=== PATIENT | female | born 1990 | race Caucasian/White ===

== ENCOUNTER 2025-01-25 09:29 | Outpatient (AMB) | payer BC, SELFPAY ==
[2025-01-25 09:34] VITALS: BP 119/69; PULSE 76; RESP 18; TEMP 36.5; O2SAT 98; BMI 22.3
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
== END 2025-01-25 10:27 | disposition home or self-care (01) ==
LOC: HODSOBC 09:29
PROVIDERS: PCP Obstetrics & Gynecology; Referring Provider Obstetrics & Gynecology; Supervising Provider Obstetrics & Gynecology; Visit Provider Obstetrics & Gynecology
DX: O09.511 Supervision of elderly primigravida, first trimester (principal); Z3A.08 8 weeks gestation of pregnancy; O09.891 Supervision of other high risk pregnancies, first trimester; E70.1 Other hyperphenylalaninemias
CPT/HCPCS: 99203; G0463

== ENCOUNTER 2025-03-03 08:26 | Outpatient (AMB) | payer BC, SELFPAY ==
[2025-03-03 08:32] VITALS: BP 103/63; PULSE 86; RESP 17; TEMP 36.5; O2SAT 99; BMI 22.9
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
== END 2025-03-03 08:59 | disposition home or self-care (01) ==
LOC: HODSOBC 08:26
PROVIDERS: Supervising Provider Obstetrics & Gynecology; Visit Provider Obstetrics & Gynecology
DX: O09.512 Supervision of elderly primigravida, second trimester (principal); Z3A.14 14 weeks gestation of pregnancy
CPT/HCPCS: 99213; G0463

== ENCOUNTER 2025-04-03 09:50 | Outpatient (AMB) | payer BC, SELFPAY ==
[2025-04-03 09:55] VITALS: BP 109/69; PULSE 93; RESP 17; TEMP 36.4; O2SAT 99; BMI 24.0
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
== END 2025-04-03 11:00 | disposition home or self-care (01) ==
LOC: HODSOBC 09:50
PROVIDERS: Supervising Provider Obstetrics & Gynecology; Visit Provider Obstetrics & Gynecology
DX: O09.511 Supervision of elderly primigravida, first trimester (principal); O09.892 Supervision of other high risk pregnancies, second trimester; O99.282 Endocrine, nutritional and metabolic diseases complicating pregnancy, second trimester; E70.1 Other hyperphenylalaninemias; Z3A.18 18 weeks gestation of pregnancy
CPT/HCPCS: 99214; G0463

== ENCOUNTER 2025-04-28 12:57 | Outpatient (AMB) | payer BC, SELFPAY ==
[2025-04-28 13:19] VITALS: BP 107/65; PULSE 93; RESP 17; TEMP 36.5; O2SAT 98; BMI 25.5
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
== END 2025-04-28 15:07 | disposition home or self-care (01) ==
LOC: HODSOBC 12:57
PROVIDERS: Supervising Provider Obstetrics & Gynecology; Visit Provider Obstetrics & Gynecology
DX: O09.512 Supervision of elderly primigravida, second trimester (principal); O09.892 Supervision of other high risk pregnancies, second trimester; O99.282 Endocrine, nutritional and metabolic diseases complicating pregnancy, second trimester; E70.1 Other hyperphenylalaninemias; Z3A.22 22 weeks gestation of pregnancy
CPT/HCPCS: 99213; G0463

== ENCOUNTER 2025-06-07 11:19 | Outpatient (AMB) | payer BC, SELFPAY ==
[2025-06-07 11:27] VITALS: BP 116/69; PULSE 91; RESP 18; TEMP 36.2; O2SAT 98; BMI 28.5
--- NOTE | 2025-06-07 11:27 | AMB.OBVISIT ---
Vital Signs 06/07/25 11:27 Height 1.55 m Height Method Stated Weight 68.663 kg Weight Measurement Method Standing Scale BMI 28.5 BP 116/69 Blood Pressure Source Automatic Cuff Blood Pressure Location Left Upper Arm Position Sitting Respiration 18 Pulse 91 Pulse Source Monitor Temp 97.2 F Temp Source Oral Pulse Oximetry (%) 98 Oxygen Delivery Method Room Air Allergies/Home Meds Allergies & Medications Allergies No Known Allergies Allergy (Verified 06/07/25 11:28) Medication Reconciliation vits no.126-ferrous fum 28 mg iron-folic acid 800 mcg tablet (Classic ) tab PO 01/25/25 [History Confirmed 06/07/25] Intake Visit Data Collection New Patient or Established: Established Patient (seen at [facility] within 3 years) Reason for Visit:: OBC Seen by Clinical Staff ONLY (RN/MA): No Environmental Services Specialist Required: No Do You Feel Safe at Home: Yes Authorities Contacted: N/A PCP or OBGYN visit in last 3 months: Yes Date of Last PCP or OBGYN visit: 04/28/25 Hx Now: Yes Are you currently on any form of Control: No Pain Present Currently: No Pain Scale Used: [place]/Numerical Pain scale:: 0 Smoking Status Smoking Status: Never smoker Questionnaires Covid-19 Vaccine Questionnaire Has patient been vacinated for Covid-19 Have you been vacinated for Covid-19: Yes PHQ-9 PHQ-2 Over the last 2 weeks, how often have you been bothered by any of the following problems? 1. Little interest or pleasure in doing things: not at all 2. Feeling down, depressed, or hopeless: not at all Total score: 0 PHQ-9 3. Trouble falling or staying asleep, or sleeping too much: Not at all 4. Feeling tired or having little energy: Not at all 5. Poor appetite or overeating: Not at all 6. Feeling bad about yourself - or that you are a failure or have let yourself or your family down: Not at all 7. Trouble concentrating on things, such as reading the newspaper or watching television: Not at all 8. Moving or speaking so slowly that other people could have noticed? - Or the opposite - being so fidgety or restless that you have been moving around a lot more than usual: not at all 9. Thoughts that you would be better off or of hurting yourself in some way: Not at all Total score: 0 If you checked off any problems, how difficult have these problems made it for you to do your work, take care of things at home, or get along with other people?: not difficult at all Source: Developed by Drs. Chaka Aguero, Ila Brothers, Rishi Andrew and colleagues, with an educational terri from [employer]. Depression screen completed yes Social History Living Situation History Marital Status: Lives With: Family Housing: House Housing Other:: Pt's boyfriend is present today. He has another child. 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 Seeing [facility] to follow PKU 04/03/25 <del>?</del> 18w 4d 57.833 kg 109/69 18 135 active Patient is starting to feel movement. No bleeding or contractions. Has an appointment with [facility] later this week to have her structural survey performed. 04/28/25 <del>?</del> 22w 1d 61.462 kg 107/65 22 143 active Patient reports good movement no contractions no loss of fluids or vaginal bleeding. 06/07/25 <del>?</del> 27w 6d 68.663 kg 116/69 30 127 active Good movement no contractions no loss of fluids Patient is concerned because she has gained about 35 pounds so far. VAHID Calculator Estimated Delivery Date Method Current WG Current Estimate 08/31/25 LMP (Certain) 27w 6d Other Estimates 12/27/25 Ultrasound #1 27w 4d Expected Delivery Route/Plan Anticipate . Specific Issue/Plans Pt has PKU: Follows special diet and gets weekly lab work. Follows at [facility]. Co-manage with [facility] AMA: Level II U/S and NIPT Labs 01/28/24 [facility] on chart: A+/Ab-/Rubella Nonimmune/RPR NR/HIV-/HepBSag-/HepC-/Urine cx-/GC-/Chlam-/Hgb 12.4 NIPT pending Notes Visit Date: 06/07/25 Last Updated by: Mary Ellen Tenorio (OB Clinic)MD 1 hour glucose was ordered. Patient states this is fine to take with PKU and she ran up by her physicians. She is following up with [facility] next week for an ultrasound for size. She was given information for . Reassurance given about weight gain. Baby is measuring big today by Ciaran around 31 weeks. Visit Date: 04/28/25 Last Updated by: Mary Ellen Tenorio (OB Clinic)MD Is doing well. Discussed breast-feeding. She states her left nipple is inverted. She is interested in breast-feeding. She is interested in going natural but also getting an epidural. She will write down her breast preferences. 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 She is getting her weekly blood drawn by her and sending it into [facility] to check for PKU status. We will order a glucose challenge test next time she states this is not a problem with her PKU. Visit Date: 03/03/25 Last Updated by: Mary Ellen Tenorio (OB Clinic)MD Pt has had NT/early US with [facility] and is followed at [facility] for her PKU. Ok to co-manage with [facility] and deliver here at [facility] unless pt becomes complicated. Office Procedures OBC Clinic LOC & Office Proc's Nursing/Assessment Patient Status: Established Patient OB Clinic Nursing Assessment: Medication Reconciliation, Update PMH in EMR and Vital Signs OB Clinic Coordination of Care: Education Complex Pt/Fam, Consent,records obtained, informed consent, Lab and Imaging orders, Results/Orders obtained and Staff clarify orders Special Needs: Heart tones Established Patient Charge Established Patient Point Assignment: 115 Established Patient Point Charge: EP Level 3 (80-115) Assessment & Plan Diagnosis / Problem List (1) AMA (advanced maternal age) primigravida 35+: Status: Acute Qualifiers: Trimester: second trimester Qualified Code(s): O09.512 - Supervision of elderly primigravida, second trimester Plan: Normal NIPT on level 2 ultrasound (2) : Status: Acute Qualifiers: Weeks of gestation: 28 weeks Qualified Code(s): Z3A.28 - 28 weeks gestation of (3) PKU (phenylketonuria): Status: Acute
== END 2025-06-07 11:47 | disposition home or self-care (01) ==
LOC: HODSOBC 11:19
PROVIDERS: Supervising Provider Obstetrics & Gynecology; Visit Provider Obstetrics & Gynecology
DX: O09.522 Supervision of elderly multigravida, second trimester (principal); O99.282 Endocrine, nutritional and metabolic diseases complicating pregnancy, second trimester; E70.1 Other hyperphenylalaninemias; O09.892 Supervision of other high risk pregnancies, second trimester; Z3A.27 27 weeks gestation of pregnancy
CPT/HCPCS: 99213; G0463

== ENCOUNTER 2025-06-30 10:18 | Outpatient (AMB) | payer BC, SELFPAY ==
[2025-06-30 10:42] VITALS: BP 117/68; PULSE 96; RESP 18; TEMP 36.2; O2SAT 97; BMI 29.7
--- NOTE | 2025-06-30 10:42 | OBCLNT_ITS ---
Vital Signs 06/30/25 10:42 Height 1.55 m Height Method Stated Weight 71.384 kg Weight Measurement Method Standing Scale BMI 29.7 BP 117/68 Blood Pressure Source Automatic Cuff Blood Pressure Location Left Upper Arm Position Sitting Respiration 18 Pulse 96 Pulse Source Monitor Temp 97.2 F Temp Source Oral Pulse Oximetry (%) 97 Oxygen Delivery Method Room Air Allergies/Home Meds Allergies & Medications Allergies No Known Allergies Allergy (Verified 06/30/25 10:43) Medication Reconciliation vits no.126-ferrous fum 28 mg iron-folic acid 800 mcg tablet (Classic ) tab PO 01/25/25 [History Confirmed 06/30/25] Intake Visit Data Collection New Patient or Established: Established Patient (seen at [facility] within 3 years) Reason for Visit:: OBC Seen by Clinical Staff ONLY (RN/MA): No Mandarin Teacher Required: No Do You Feel Safe at Home: Yes Authorities Contacted: N/A PCP or OBGYN visit in last 3 months: Yes Date of Last PCP or OBGYN visit: 06/07/25 Hx Now: Yes Are you currently on any form of Control: No Pain Present Currently: No Pain Scale Used: [place]/Numerical Pain scale:: 0 Smoking Status Smoking Status: Never smoker Immunizations Flu Vaccine in the Last 12 Months: No Flu Vaccine Exclusion Criteria: No Exclusion Criteria Questionnaires Covid-19 Vaccine Questionnaire Has patient been vacinated for Covid-19 Have you been vacinated for Covid-19: No PHQ-9 PHQ-2 Over the last 2 weeks, how often have you been bothered by any of the following problems? 1. Little interest or pleasure in doing things: not at all 2. Feeling down, depressed, or hopeless: not at all Total score: 0 PHQ-9 3. Trouble falling or staying asleep, or sleeping too much: Not at all 4. Feeling tired or having little energy: Not at all 5. Poor appetite or overeating: Not at all 6. Feeling bad about yourself - or that you are a failure or have let yourself or your family down: Not at all 7. Trouble concentrating on things, such as reading the newspaper or watching television: Not at all 8. Moving or speaking so slowly that other people could have noticed? - Or the opposite - being so fidgety or restless that you have been moving around a lot more than usual: not at all 9. Thoughts that you would be better off or of hurting yourself in some way: Not at all Total score: 0 If you checked off any problems, how difficult have these problems made it for you to do your work, take care of things at home, or get along with other people?: not difficult at all Source: Developed by Drs. Chaka Aguero, Ila Brothers, Rishi Andrew and colleagues, with an educational terri from [employer]. Depression screen completed yes Social History Living Situation History Lives With: Family Housing: House Housing Other:: Pt's boyfriend is present today. He has another child. 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 [facility] to follow [facility]U 04/03/25 -?-?-?-?-?-?-?-?-?-?-?-?- 18w 4d 57.833 kg 109/69 18 135 active Patient is starting to feel movement. No bleeding or contractions. Has an appointment with [facility] later this week to have her structural survey performed. 04/28/25 -?-?-?-?-?-?-?-?-?-?-?-?- 22w 1d 61.462 kg 107/65 22 143 active Patient reports good movement no contractions no loss of fluids or vaginal bleeding. 06/07/25 -?-?-?-?-?-?-?-?-?-?-?-?- 27w 6d 68.663 kg 116/69 30 127 active Good movement no contractions no loss of fluids Patient is con cerned because she has gained about 35 pounds so far. 06/30/25 -?-?-?-?-?-?-?-?-?-?-?-?- 31w 1d 71.384 kg 117/68 absent cephalic 32 145 active - Alanis Bentley is a 34-year-old female at 31 weeks and 1 day gestation with an estimated due date of August 31, with a past medical history of PKU, here for routine care. - She has active PKU and follows a low-p rotein diet, avoiding certain medications, dyes, coloring agents, flavoring agents, and aspartame. - She performs weekly home tests to nettie tor protein levels, which have been normal. - She is followed by [facility] for her high-ri sk . - She inquired about caffeine intake dur ing . - She asked about epidurals and their association with C-sections. - Continue taking vitamins - Next appointment in 2 weeks - Weekly visits after 35 weeks - Continue weekly home tests to monitor protein levels - Maintain low-protein diet and avoid ce rtain medications, dyes, coloring agents, flavoring agents, and aspartame due to PKU - Continue MFM follow-up VAHID Calculator Estimated Delivery Date Method Current WG Current Estimate 08/31/25 LMP (Certain) 31w 4d Other Estimates 09/02/25 Ultrasound #1 31w 2d Expected Delivery Route/Plan Anticipate . Specific Issue/Plans Pt has PKU: Follows special diet and gets weekly lab work. Follows at [facility]. Co-manage with [facility] AMA: Level II U/S and NIPT Labs 01/28/24 [facility] on chart: A+/Ab-/Rubella Nonimmune/RPR NR/HIV-/HepBSag-/HepC-/Urine cx-/GC-/Chlam-/Hgb 12.4 NIPT pending Notes Visit Date: 06/07/25 Last Updated by: Mary Ellen Tenorio (OB Clinic)MD 1 hour glucose was ordered. Patient states this is fine to take with PKU and she ran up by her physicians. She is following up with [facility] next week for an ultrasound for size. She was given information for . Reassurance given about weight gain. Baby is measuring big today by Ciaran around 31 weeks. Visit Date: 04/28/25 Last Updated by: Mary Ellen Tenroio (OB Clinic)MD Is doing well. Discussed breast-feeding. She states her left nipple is inverted. She is interested in breast-feeding. She is interested in going natural but also getting an epidural. She will write down her breast preferences. 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 She is getting her weekly [facility] by [facility] We will order a glucose challenge test next time she states this is not a problem with her PKU. Visit Date: 03/03/25 Last Updated by: Mary Ellen Tenorio (OB Clinic)MD Pt has had NT/early US with [facility] and [facility]. Ok to co-manage with [facility] and deliver here at [facility] unless pt becomes complicated. Office Procedures OBC Clinic LOC & Office Proc's Nursing/Assessment Patient Status: Established Patient OB Clinic Nursing Assessment: Medication Reconciliation, Update PMH in EMR and Vital Signs OB Clinic Coordination of Care: Consent,records obtained, informed consent, Education Simp Pt/Fam, Lab and Imaging orders, Results/Orders obtained and Staff clarify orders Special Needs: Heart tones Established Patient Charge Established Patient Point Assignment: 110 Established Patient Point Charge: EP Level 3 (80-115) Assessment & Plan Diagnosis / Problem List (1) PKU (phenylketonuria): Status: Acute (2) AMA (advanced maternal age) primigravida 35+: Status: Acute Qualifiers: Trimester: second trimester Qualified Code(s): O09.512 - Supervision of elderly primigravida, second trimester (3) 31 weeks gestation of : Status: Acute Plan Problem List - Phenylketonuria - at 31 weeks 1 day gestation Assessment 30-year-old patient at 31 weeks 1 day gestation with estimated due date of August 31, complicated by phenylketonuria (PKU) requiring dietary management and maternal- medicine follow-up. Recent growth assessment on 06-15-2025 demonstrates appropriate growth at 80th percentile with estimated weight of 3 pounds 2 ounces and normal anatomy. Laboratory results from 06-17-2025 show hemoglobin of 11.4 g/dL and one-hour glucose screening of 119 mg/dL. Patient maintains good PKU control with weekly home protein level monitoring showing normal results while adhering to low-protein diet restrictions. Previous MFM scan on 05-05-2025 at 23 weeks showed fetus at 50th percentile weighing 568 grams with normal anatomy survey and cervical length of 4.23 cm. Plan - Continue taking vitamins - Next appointment in 2 weeks - Weekly visits after 35 weeks - Continue weekly home tests to monitor protein levels - Maintain low-protein diet and avoid certain medications, dyes, coloring agents, flavoring agents, and aspartame due to PKU - Continue MFM follow-up 1. Progress Reviewed gestational age (31 weeks 1 day), growth (3 pounds 2 ounces, 80th percentile), and heart rate. Planned frequent visits (every 2 weeks until 35 weeks, then weekly). 2. Instructed patient to monitor movements and report decreases immediately. 3. Testing Counseled on routine third-trimester labs per guidelines. Discussed potential need for ultrasound or monitoring based on risk factors. 4. Preeclampsia Precaution Educated on preeclampsia signs: severe headache, vision changes, right upper quadrant pain, sudden swelling. Advised urgent reporting of symptoms and discussed blood pressure monitoring if high risk. 5. Labor Precautions Reviewed labor signs: regular contractions, pelvic pressure, back pain, bleeding, or fluid leakage. Instructed to seek immediate care for these symptoms. 6. Lifestyle and Delivery Preparation Reinforced vitamins, nutrition, and safe activity. Discussed plan, pain management (including epidural education), and . Advised on labor preparation (e.g., hospital bag) and expectations. 7. Psychosocial Support Assessed emotional well-being and offered resources for mental health or parent ing support.
== END 2025-06-30 11:08 | disposition home or self-care (01) ==
PROVIDERS: Supervising Provider Obstetrics & Gynecology; Visit Provider Obstetrics & Gynecology
DX: O09.523 Supervision of elderly multigravida, third trimester (principal); O09.893 Supervision of other high risk pregnancies, third trimester; O99.283 Endocrine, nutritional and metabolic diseases complicating pregnancy, third trimester; E70.1 Other hyperphenylalaninemias; Z3A.31 31 weeks gestation of pregnancy
CPT/HCPCS: 99213; G0463

== ENCOUNTER 2025-07-12 08:28 | Outpatient (AMB) | payer BC, SELFPAY ==
--- NOTE | 2025-07-12 08:47 | AMB.OBVISIT ---
Vital Signs 07/12/25 08:48 Height 1.55 m Height Method Stated Weight 73.595 kg Weight Measurement Method Standing Scale BMI 30.6 BP 116/72 Blood Pressure Source Automatic Cuff Blood Pressure Location Left Upper Arm Position Standing Respiration 18 Pulse 110 H Pulse Source Monitor Temp 97.6 F Temp Source Oral Pulse Oximetry (%) 98 Oxygen Delivery Method Room Air Allergies/Home Meds Allergies & Medications Allergies No Known Allergies Allergy (Verified 07/12/25 08:49) Medication Reconciliation vits no.126-ferrous fum 28 mg iron-folic acid 800 mcg tablet (Classic ) tab PO 01/25/25 [History Confirmed 07/12/25] Intake Visit Data Collection New Patient or Established: Established Patient (seen at [facility] within 3 years) Reason for Visit:: OBC Seen by Clinical Staff ONLY (RN/MA): No Sports Team Manager Required: No Do You Feel Safe at Home: Yes Authorities Contacted: N/A PCP or OBGYN visit in last 3 months: Yes Date of Last PCP or OBGYN visit: 06/30/25 ( .) Smoking Status Smoking Status: Never smoker Immunizations Flu Vaccine in the Last 12 Months: No Flu Vaccine Exclusion Criteria: No Exclusion Criteria Questionnaires Covid-19 Vaccine Questionnaire Has patient been vacinated for Covid-19 Have you been vacinated for Covid-19: Yes PHQ-9 PHQ-2 Over the last 2 weeks, how often have you been bothered by any of the following problems? 1. Little interest or pleasure in doing things: not at all 2. Feeling down, depressed, or hopeless: not at all Total score: 0 PHQ-9 3. Trouble falling or staying asleep, or sleeping too much: Not at all 4. Feeling tired or having little energy: Not at all 5. Poor appetite or overeating: Not at all 6. Feeling bad about yourself - or that you are a failure or have let yourself or your family down: Not at all 7. Trouble concentrating on things, such as reading the newspaper or watching television: Not at all 8. Moving or speaking so slowly that other people could have noticed? - Or the opposite - being so fidgety or restless that you have been moving around a lot more than usual: not at all 9. Thoughts that you would be better off or of hurting yourself in some way: Not at all Total score: 0 If you checked off any problems, how difficult have these problems made it for you to do your work, take care of things at home, or get along with other people?: not difficult at all Source: Developed by Drs. Chaka Aguero, Ila Brothers, Rishi Andrew and colleagues, with an educational terri from [employer]. Depression screen completed yes Social History Living Situation History Marital Status: Single Lives With: Family Housing: House Housing Other:: Pt's boyfriend is present today. He has another child. 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 Seeing [facility] to follow PKU 04/03/25 <del>?</del> 18w 4d 57.833 kg 109/69 18 135 active Patient is starting to feel movement. No bleeding or contractions. Has an appointment with [facility] later this week to have her structural survey performed. 04/28/25 <del>?</del> 22w 1d 61.462 kg 107/65 22 143 active Patient reports good movement no contractions no loss of fluids or vaginal bleeding. 06/07/25 <del>?</del> 27w 6d 68.663 kg 116/69 30 127 active Good movement no contractions no loss of fluids Patient is concerned because she has gained about 35 pounds so far. 06/30/25 <del>?</del> 31w 1d 71.384 kg 117/68 absent cephalic 32 145 active - Alanis Bentley is a 34-year-old female at 31 weeks and 1 day gestation with an estimated due date of August 31, with a past medical history of PKU, here for routine care. - She has active PKU and follows a low-protein diet, avoiding certain medications, dyes, coloring agents, flavoring agents, and aspartame. - She performs weekly home tests to monitor protein levels, which have been normal. - She is followed by [facility] for her high-risk . - She inquired about caffeine intake during . - She asked about epidurals and their association with C-sections. - Continue taking vitamins - Next appointment in 2 weeks - Weekly visits after 35 weeks - Continue weekly home tests to monitor protein levels - Maintain low-protein diet and avoid certain medications, dyes, coloring agents, flavoring agents, and aspartame due to PKU - Continue MFM follow-up VAHID Calculator Estimated Delivery Date Method Current WG Current Estimate 08/31/25 LMP (Certain) 32w 6d Other Estimates 09/02/25 Ultrasound #1 32w 4d Expected Delivery Route/Plan Anticipate . Specific Issue/Plans Pt has PKU: Follows special diet and gets weekly lab work. Follows at [facility]. Co-manage with Ms AMA: Level II U/S and NIPT Labs 01/28/24 [facility] on chart: A+/Ab-/Rubella Nonimmune/RPR NR/HIV-/HepBSag-/HepC-/Urine cx-/GC-/Chlam-/Hgb 12.4 NIPT pending Notes Visit Date: 06/07/25 Last Updated by: Mary Ellen Tenorio (OB Clinic)MD 1 hour glucose was ordered. Patient states this is fine to take with PKU and she ran up by her physicians. She is following up with [facility] next week for an ultrasound for size. She was given information for . Reassurance given about weight gain. Baby is measuring big today by Ciaran around 31 weeks. Visit Date: 04/28/25 Last Updated by: Mary Ellen Tenorio (OB Clinic)MD Is doing well. Discussed breast-feeding. She states her left nipple is inverted. She is interested in breast-feeding. She is interested in going natural but also getting an epidural. She will write down her breast preferences. 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 She is getting her weekly blood drawn by [facility]. We will order a glucose challenge test next time she states this is not a problem with her PKU. Visit Date: 03/03/25 Last Updated by: Mary Ellen Tenorio (OB Clinic)MD Pt has had NT/early US with [facility]. Ok to co-manage with [facility] and deliver here at [facility] unless pt becomes complicated. Office Procedures OBC Clinic LOC & Office Proc's Nursing/Assessment Patient Status: Established Patient OB Clinic Nursing Assessment: Medication Reconciliation, Update PMH in EMR and Vital Signs OB Clinic Coordination of Care: Consent,records obtained, informed consent, Education Simp Pt/Fam, Lab and Imaging orders, Results/Orders obtained and Staff clarify orders Special Needs: Heart tones Established Patient Charge Established Patient Point Assignment: 110 Established Patient Point Charge: EP Level 3 (80-115) Assessment & Plan Diagnosis / Problem List (1) AMA (advanced maternal age) primigravida 35+: Status: Acute Qualifiers: Trimester: second trimester Qualified Code(s): O09.512 - Supervision of elderly primigravida, second trimester (2) PKU (phenylketonuria): Status: Acute (3) 33 weeks gestation of : Status: Acute Plan Problem List - Phenylketonuria - at 32 weeks 6 days Assessment 32 weeks 6 days gestation in a 1 para 0 patient with phenylketonuria. Patient reports active movement with no contractions. heart rate is 146 bpm, which is within normal limits. Patient continues to work and remains active. Plan - Obtain influenza, RSV, and Tdap vaccines at pharmacy ([facility] or [email or web address]) - Follow up in 2 weeks - After next visit, appointments will become weekly 1. Progress Reviewed gestational age (32 weeks 6 days), growth, and heart rate (146 bpm - normal). Planned frequent visits (every 2 weeks until 36 weeks, then weekly). 2. Instructed patient to monitor movements and report decreases immediately. 3. Testing Counseled on routine third-trimester labs per guidelines. Discussed potential need for ultrasound or monitoring based on risk factors. 4. Preeclampsia Precaution Educated on preeclampsia signs: severe headache, vision changes, right upper quadrant pain, sudden swelling. Advised urgent reporting of symptoms and discussed blood pressure monitoring if high risk. 5. Labor Precautions Reviewed labor signs: regular contractions, pelvic pressure, back pain, bleeding, or fluid leakage. Instructed to seek immediate care for these symptoms. 6. Lifestyle and Delivery Preparation Reinforced vitamins, nutrition, and safe activity. Encouraged continued work and activity to maintain muscle tone and strength for delivery. Discussed plan, pain management, and . Advised on labor preparation (e.g., hospital bag) and expectations. 7. Psychosocial Support Assessed emotional well-being and offered resources for mental health or parenting support.
[2025-07-12 08:48] VITALS: BP 116/72; PULSE 110; RESP 18; TEMP 36.4; O2SAT 98; BMI 30.6
== END 2025-07-12 09:31 | disposition home or self-care (01) ==
LOC: HODSOBC 08:28
PROVIDERS: Supervising Provider Obstetrics & Gynecology; Visit Provider Obstetrics & Gynecology
DX: O09.513 Supervision of elderly primigravida, third trimester (principal); O09.893 Supervision of other high risk pregnancies, third trimester; O99.283 Endocrine, nutritional and metabolic diseases complicating pregnancy, third trimester; E70.1 Other hyperphenylalaninemias; Z3A.33 33 weeks gestation of pregnancy
CPT/HCPCS: 99213; G0463

== ENCOUNTER 2025-07-28 10:18 | Outpatient (AMB) | payer BC, SELFPAY ==
[2025-07-28 10:28] VITALS: BP 122/71; PULSE 99; RESP 18; TEMP 36.6; O2SAT 97; BMI 31.4
--- NOTE | 2025-07-28 10:28 | OBCLNT_ITS ---
Vital Signs 07/28/25 10:28 Height 1.55 m Height Method Stated Weight 75.466 kg Weight Measurement Method Standing Scale BMI 31.4 BP 122/71 Blood Pressure Source Automatic Cuff Blood Pressure Location Right Upper Arm Position Sitting Respiration 18 Pulse 99 Pulse Source Monitor Temp 97.8 F Temp Source Temporal Artery Scan Pulse Oximetry (%) 97 Oxygen Delivery Method Room Air Allergies/Home Meds Allergies & Medications Allergies No Known Allergies Allergy (Verified 08/28/25 08:47) Medication Reconciliation vits no.126-ferrous fum 28 mg iron-folic acid 800 mcg tablet (Classic ) 1 tab PO QDAY 01/25/25 [History Confirmed 08/25/25] Immunizations Immunizations Flu Vaccine in the Last 12 Months: No Flu Vaccine Exclusion Criteria: Refused by Patient Care OB Visit Log OB Flowsheet Initial Weight: Not Recorded Date -?-?-?-?-?-?-?-?-?-?-?-?- EGA Weight BP Alb Glu CTX Pres Fundal ht FHR Mov Dilation Station Effacement Hx Notes Visit Note 03/03/25 -?-?-?-?-?-?-?-?-?-?-?-?- 14w 1d 55.055 kg 103/63 14 154 No VB or Cramping. Seeing [facility] to follow PKU 04/03/25 -?-?-?-?-?-?-?-?-?-?-?-?- 18w 4d 57.833 kg 109/69 18 135 active Patient is starting to feel movement. No bleeding or contractions. Has an appointment with [facility] later this week to have her structural survey performed. 04/28/25 -?-?-?-?-?-?-?-?-?-?-?-?- 22w 1d 61.462 kg 107/65 22 143 active Patient reports good movement no contractions no loss of fluids or vaginal bleeding. 06/07/25 -?-?-?-?-?-?-?-?-?-?-?-?- 27w 6d 68.663 kg 116/69 30 127 active Good movement no contractions no loss of fluids Patient is con cerned because she has gained about 35 pounds so far. 06/30/25 -?-?-?-?-?-?-?-?-?-?-?-?- 31w 1d 71.384 kg 117/68 absent cephalic 32 145 active - Alanis Bentley is a 34-year-old female at 31 weeks and 1 day gestation with an estimated due date of August 31, with a past medical history of PKU, here for routine care. - She has active PKU and follows a low-p rotein diet, avoiding certain medications, dyes, coloring agents, flavoring agents, and aspartame. - She performs weekly home tests to nettie tor protein levels, which have been normal. - She is followed by [facility] for her high-ri sk . - She inquired about caffeine intake dur ing . - She asked about epidurals and their association with C-sections. - Continue taking vitamins - Next appointment in 2 weeks - Weekly visits after 35 weeks - Continue weekly home tests to monitor protein levels - Maintain low-protein diet and avoid ce rtain medications, dyes, coloring agents, flavoring agents, and aspartame due to PKU - Continue [facility] follow-up 07/12/25 -?-?-?-?-?-?-?-?-?-?-?-?- 32w 6d 73.595 kg 116/72 absent cephalic 33 146 active - She reports the baby is active with no contractions. - She continues to work and remains phys ically active. - She inquires about RSV vaccination cy ing as she will be 33 weeks tomorrow. - She reports baby becomes active at [facility], particularly after eating dinner late. - Obtain influen za, RSV, and Tdap vaccines at pharmacy ([employer] or [facility]) - Follow up in 2 weeks - After next visit, appointments will be come weekly 07/28/25 -?-?-?-?-?-?-?-?-?-?-?-?- 35w 1d 75.466 kg 122/71 absent cephalic 35 162 active - She reports the baby is always active and notes she is getting bigger. - She experiences shortness of breath al l the time. - She had consumed sugar prior to the vi sit. - She inquired about obtaining an electr ic breast pump through insurance referral. - She asked about rooming-in policies wi th the baby after delivery. - She expressed concerns about delivery location given she lives in [place] with the nearest hospital being [facility], but prefers to deliver at the current facility. - Follow up in one week - Group B Strep culture due at next visi t - Electric breast pump referral to be pr ocessed by [facility] - Patient counseled on labor and deliver y protocols including rooming-in options, [id number] contact, delayed cord clamping, and hospital selection based on labor status 08/18/25 -?--?-?-?-?-?-?-?-?-?-?-?- 38w 1d 77.224 kg 111/74 absent cephalic 39 145 active - She reports no contractions currently, though had more [place] contractions over the last 2 weeks which have now decreased. - This morning she experienced what felt like urinary leakage that went down her leg. - Did not notice any particular smell - Has not had any ongoing leakage sinc e the single episode a couple hours prior to visit - Reports baseline increased vaginal d ischarge that predates - She denies any gush of fluid or contin uous leaking. - Patient desires natural and is a pproaching her due date in approximately 2 weeks. - Administer pen icillin in labor due to positive GBS culture - Check cervix at 39 weeks - Perform membrane sweeping at 39 weeks visit to promote labor - Schedule ultrasound at next visit for weight measurement - If leaking episode recurs, come to [facility] for rupture of membranes test (amnisure test) 08/25/25 -?-?-?-?-?-?-?-?-?-?-?-?- 39w 1d 77.281 kg 130/70 absent cephalic 40 139 active No contractions, LOF, VB and reports good FM. Denies BRADSHAW, VC, and epigastric pain. - Induction of labor scheduled for ThursdaySeptember 04 at 40 weeks 4 days gestation - Patient to call labor and delivery uni t at [phone] (direct number) at 7:30 AM on September 04 for admission time and room assignment - Induction process will include cervica l ripening phase if cervix <3 cm dilated using misoprostol tablets or dinoprostone vaginal insert, followed by artificial rupture of membranes and oxytocin administration - Complete ultrasound today to assess fe mina weight, amniotic fluid index, placenta, and well-being - Non-stress test (NST) for 20 minutes w ith heart rate monitoring - Patient advised to increase fluid inta ke when experiencing hiccups - No further office appointments schedul ed prior to induction VAHID Calculator Estimated Delivery Date Method Current WG Current Estimate 08/31/25 LMP (Certain) 40w 0d Other Estimates 09/02/25 Ultrasound #1 39w 5d Expected Delivery Route/Plan Anticipate . Specific Issue/Plans Pt has PKU: Follows special diet and gets weekly lab work. Follows at [facility]. Co-manage with [facility] AMA: Level II U/S and NIPT Labs 01/28/24 [facility] on chart: A+/Ab-/Rubella Nonimmune/RPR NR/HIV-/HepBSag-/HepC-/Urine cx-/GC-/Chlam-/Hgb 12.4 NIPT pending Notes Visit Date: 06/07/25 Last Updated by: Mary Ellen Tenorio (OB Clinic)MD 1 hour glucose was ordered. Patient states this is fine to take with PKU and she ran up by her physicians. She is following up with [facility] next week for an ultrasound for size. She was given information for . Reassurance given about weight gain. Baby is measuring big today by Ciaran around 31 weeks. Visit Date: 04/28/25 Last Updated by: Mary Ellen Tenorio (OB Clinic)MD Is doing well. Discussed breast-feeding. She states her left nipple is inverted. She is interested in breast-feeding. She is interested in going natural but also getting an epidural. She will write down her breast preferences. 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 She is getting her weekly blood drawn by her and [facility] to check for PKU status. We will order a glucose challenge test next time she states this is not a problem with her PKU. Visit Date: 03/03/25 Last Updated by: Mary Ellen Tenorio (OB Clinic)MD Pt has had NT/early US with [facility] and is followed at [facility] for her PKU. Ok to co-manage with [facility] and deliver here at [facility] unless pt becomes complicated. Office Procedures OBC Clinic LOC & Office Proc's Nursing/Assessment Patient Status: Established Patient OB Clinic Nursing Assessment: Medication Reconciliation, Update PMH in EMR and Vital Signs OB Clinic Coordination of Care: Complex Care and Chronic Disease 1-5, Education Complex Pt/Fam, Consent,records obtained, informed consent, Lab and Imaging orders, Results/Orders obtained and Staff clarify orders Special Needs: Heart tones Established Patient Charge Established Patient Point Assignment: 140 Established Patient Point Charge: EP Level 4 (120-155) Assessment & Plan Diagnosis / Problem List (1) Supervision of high risk , unspecified, third trimester: Status: Acute (2) PKU (phenylketonuria): Status: Acute (3) AMA (advanced maternal age) primigravida 35+: Status: Acute Qualifiers: Trimester: second trimester Qualified Code(s): O09.512 - Supervision of elderly primigravida, second trimester Plan Assessment 34-year-old patient at approximately 35 weeks gestation with estimated due date of August 31, presenting for routine visit. heart rate is 162 bpm, which is within normal limits. Patient reports increased activity and experiencing shortness of breath, consistent with advancing . Patient consumed sugar prior to visit which may account for elevated heart rate. Patient is beyond the 34-week gestational age threshold for delivery at this facility. Plan - Follow up in one week - Group B Strep culture due at next visit - Electric breast pump referral to be processed by [facility] - Patient counseled on labor and delivery protocols including rooming-in options, [id number] contact, delayed cord clamping, and hospital selection based on labor status 1. Progress Reviewed gestational age at 35 weeks with due date August 31, growth appropriate, and heart rate 162 bpm which is normal. Patient reports increased activity and shortness of breath. Planned frequent visits (every 2 weeks until 36 weeks, then weekly). 2. Instructed patient to monitor movements and report decreases immediately. 3. Testing Counseled on routine third-trimester labs per guidelines including Group B Strep culture scheduled for next visit. Discussed potential need for ultrasound or monitoring based on risk factors. 4. Preeclampsia Precaution Educated on preeclampsia signs: severe headache, vision changes, right upper quadrant pain, sudden swelling. Advised urgent reporting of symptoms and discussed blood pressure monitoring if high risk. 5. Labor Precautions Reviewed labor signs: regular contractions, pelvic pressure, back pain, bleeding, or fluid leakage. Instructed to seek immediate care for these symptoms. Discussed that if in active labor where patient cannot speak through contractions, or if bleeding or decreased movement occurs, to go to nearest hospital. If water breaks without active contractions, patient can travel to preferred hospital. 6. Lifestyle and Delivery Preparation Reinforced vitamins, nutrition, and safe activity. Discussed plan including rooming-in options, [id number] contact immediately after delivery, delayed cord clamping, and procedures. Discussed pain management and support including electric breast pump referral to [facility]. Advised on labor preparation and expectations including nursery vs rooming-in options based on delivery circumstances. 7. Psychosocial Support Assessed emotional well-being and offered resources for mental health or parenting support.
== END 2025-07-28 10:51 | disposition home or self-care (01) ==
LOC: HODSOBC 10:18
PROVIDERS: Supervising Provider Obstetrics & Gynecology; Visit Provider Obstetrics & Gynecology
DX: O09.893 Supervision of other high risk pregnancies, third trimester (principal); O99.283 Endocrine, nutritional and metabolic diseases complicating pregnancy, third trimester; O09.513 Supervision of elderly primigravida, third trimester; E70.1 Other hyperphenylalaninemias; Z3A.35 35 weeks gestation of pregnancy; Z28.21 Immunization not carried out because of patient refusal
CPT/HCPCS: 99214; G0463

== ENCOUNTER 2025-08-08 09:01 | Outpatient (AMB) | payer BC, SELFPAY ==
--- NOTE | 2025-08-08 09:23 | OBCLNT_ITS ---
Vital Signs 08/08/25 09:24 Height 1.55 m Height Method Stated Weight 76.26 kg Weight Measurement Method Standing Scale BMI 31.7 BP 118/73 Blood Pressure Source Automatic Cuff Blood Pressure Location Left Upper Arm Position Sitting Respiration 18 Pulse 112 H Pulse Source Monitor Temp 98.2 F Temp Source Oral Pulse Oximetry (%) 98 Oxygen Delivery Method Room Air Allergies/Home Meds Allergies & Medications Allergies phenylalanine Allergy (Severe, Verified 09/01/25 22:20) Confusion soy Allergy (Severe, Verified 09/01/25 21:48) Confusion meats Allergy (Severe, Uncoded 09/01/25 21:48) Confusion proteins Allergy (Severe, Uncoded 09/01/25 21:48) Confusion tofu Allergy (Severe, Uncoded 09/01/25 21:48) Confusion Immunizations Immunizations Flu Vaccine in the Last 12 Months: No Flu Vaccine Exclusion Criteria: No Exclusion Criteria Care OB Visit Log OB Flowsheet Initial Weight: Not Recorded Date -?-?-?-?-?-?-?-?-?-?-?-?- EGA Weight BP Alb Glu CTX Pres Fundal ht FHR Mov Dilation Station Effacement Hx Notes Visit Note 03/03/25 -?-?-?-?-?-?-?-?-?-?-?-?- 14w 1d 55.055 kg 103/63 14 154 No VB or Cramping. Seeing [facility] to follow PKU 04/03/25 -?-?-?-?-?-?-?-?-?-?-?-?- 18w 4d 57.833 kg 109/69 18 135 active Patient is starting to feel movement. No bleeding or contractions. Has an appointment with [facility] later this week to have her structural survey performed. 04/28/25 -?-?-?-?-?-?-?-?-?-?-?-?- 22w 1d 61.462 kg 107/65 22 143 active Patient reports good movement no contractions no loss of fluids or vaginal bleeding. 06/07/25 -?-?-?-?-?-?-?-?-?-?-?-?- 27w 6d 68.663 kg 116/69 30 127 active Good movement no contractions no loss of fluids Patient is con cerned because she has gained about 35 pounds so far. 06/30/25 -?-?-?-?-?-?-?-?-?-?-?-?- 31w 1d 71.384 kg 117/68 absent cephalic 32 145 active - Alanis Bentley is a 34-year-old female at 31 weeks and 1 day gestation with an estimated due date of August 31, with a past medical history of PKU, here for routine care. - She has active PKU and follows a low-p rotein diet, avoiding certain medications, dyes, coloring agents, flavoring agents, and aspartame. - She performs weekly home tests to nettie tor protein levels, which have been normal. - She is followed by [facility] for her high-ri sk . - She inquired about caffeine intake dur ing . - She asked about epidurals and their association with C-sections. - Continue taking vitamins - Next appointment in 2 weeks - Weekly visits after 35 weeks - Continue weekly home tests to monitor protein levels - Maintain low-protein diet and avoid ce rtain medications, dyes, coloring agents, flavoring agents, and aspartame due to PKU - Continue MFM follow-up 07/12/25 -?-?-?-?-?-?-?-?-?-?-?-?- 32w 6d 73.595 kg 116/72 absent cephalic 33 146 active - She reports the baby is active with no contractions. - She continues to work and remains phys ically active. - She inquires about RSV vaccination cy ing as she will be 33 weeks tomorrow. - She reports baby becomes active at [facility], particularly after eating dinner late. - Obtain influen za, RSV, and Tdap vaccines at pharmacy ([employer] or [employer]) - Follow up in 2 weeks - After next visit, appointments will be come weekly 07/28/25 -?-?-?-?-?-?-?-?-?-?-?-?- 35w 1d 75.466 kg 122/71 absent cephalic 35 162 active - She reports the baby is always active and notes she is getting bigger. - She experiences shortness of breath al l the time. - She had consumed sugar prior to the vi sit. - She inquired about obtaining an electr ic breast pump through insurance referral. - She asked about rooming-in policies wi th the baby after delivery. - She expressed concerns about delivery location given she lives in [place] with the nearest hospital being [facility], but prefers to deliver at the current facility. - Follow up in one week - Group B Strep culture due at next visi t - Electric breast pump referral to be pr ocessed by Talia - Patient counseled on labor and deliver y protocols including rooming-in options, [id number] contact, delayed cord clamping, and hospital selection based on labor status 08/08/25 -?-?-?-?-?-?-?-?-?-?-?-?- 36w 5d 76.26 kg 118/73 absent cephalic 37 145 active - She reports some mild discomfort last night after attending a parade, describing it as coming and going. - This occurred after 34 weeks gestati on, which the clinician noted can happen at this stage. - She denies having contractions. 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 - She is still working and plans to cont inue as long as she can. - She had an ultrasound at [facility] on July 18 s howing: - Overall size at 78th percentil e - Abdominal circumference at 94th perc entile - She was referred there due to being high risk - The maternal medicine team ind icated follow-up was at the discretion of her primary systems technician - GB S culture collected (rectovaginal swab) - Continue routine care - Follow up in one week - Ultrasound at time of admission for zambrano to estimate weight 08/18/25 -?-?-?-?-?-?-?-?-?-?-?-?- 38w 1d 77.224 kg 111/74 absent cephalic 39 145 active - She reports no contractions currently, though had more Roque Salinas contractions over the last 2 weeks which have now decreased. - This morning she experienced what felt like urinary leakage that went down her leg. - Did not notice any particular smell - Has not had any ongoing leakage sinc e the single episode a couple hours prior to visit - Reports baseline increased vaginal d ischarge that predates - She denies any gush of fluid or contin uous leaking. - Patient desires natural and is a pproaching her due date in approximately 2 weeks. - Administer pen icillin in labor due to positive GBS culture - Check cervix at 39 weeks - Perform membrane sweeping at 39 weeks visit to promote labor - Schedule ultrasound at next visit for weight measurement - If leaking episode recurs[facility] (am[facility] test) 08/25/25 -?-?-?-?-?-?-?-?-?-?-?-?- 39w 1d 77.281 kg 130/70 absent cephalic 40 139 active No contractions, LOF, VB and reports good FM. Denies BRADSHAW, VC, and epigastric pain. - Induction of labor scheduled for ThursdaySeptember 04 at 40 weeks 4 days gestation - Patient to call labor and delivery uni t at [phone] (direct number) at 7:30 AM on September 04 for admission time and room assignment - Induction process will include cervica l ripening phase if cervix <3 cm dilated using misoprostol tablets or dinoprostone vaginal insert, followed by artificial rupture of membranes and oxytocin administration - Complete ultrasound today to assess fe mina weight, amniotic fluid index, placenta, and well-being - Non-stress test (NST) for 20 minutes w ith heart rate monitoring - Patient advised to increase fluid inta ke when experiencing hiccups - No further office appointments schedul ed prior to induction VAHID Calculator Estimated Delivery Date Method Current WG Current Estimate 08/31/25 LMP (Certain) 40w 4d Other Estimates 09/02/25 Ultrasound #1 40w 2d Expected Delivery Route/Plan Anticipate . Specific Issue/Plans Pt has PKU: Follows special diet and gets weekly lab work. Follows at [facility]. Co-manage with [facility] AMA: Level II U/S and NIPT Labs 01/28/24 [facility] on chart: A+/Ab-/Rubella Nonimmune/RPR NR/HIV-/HepBSag-/HepC-/Urine cx-/GC-/Chlam-/Hgb 12.4 NIPT pending Notes Visit Date: 08/08/25 Last Updated by: Ramez Horn MD Laboratory, Imaging, and Diagnostic Test Results - Date: 07/18/2025 - Maternal Medicine ultrasound: Estimated weight 2546 grams (78th percentile), abdominal circumference 94th percentile, head circumference 63, biparietal diameter 74, femur length 30, amniotic fluid index 16.5, cephalic presentation Visit Date: 06/07/25 Last Updated by: Mary Ellen Tenorio (OB Clinic)MD 1 hour glucose was ordered. Patient states this is fine to take with PKU and she ran up by her physicians. She is following up with [facility] next week for an ultrasound for size. She was given information for . Reassurance given about weight gain. Baby is measuring big today by Ciaran around 31 weeks. Visit Date: 04/28/25 Last Updated by: Mary Ellen Tenorio (OB Clinic)MD Is doing well. Discussed breast-feeding. She states her left nipple is inverted. She is interested in breast-feeding. She is interested in going preeti ural but also getting an epidural. She will write down her breast preferences. 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 She is getting her weekly blood drawn by her and sending it into [facility] to check for PKU status. We will order a glucose challenge test next time she states this is not a problem with her PKU. Visit Date: 03/03/25 Last Updated by: Mary Ellen Tenorio (OB Clinic)MD Pt has had NT/early US with [facility] and is followed at [facility] for her PKU. Ok to co-manage with [facility] and deliver here at [facility] unless pt becomes complicated. Office Procedures OBC Clinic LOC & Office Proc's Nursing/Assessment Patient Status: Established Patient OB Clinic Nursing Assessment: Medication Reconciliation, Update PMH in EMR and Vital Signs OB Clinic Coordination of Care: Consent,records obtained, informed consent, Education Simp Pt/Fam, Lab and Imaging orders, Results/Orders obtained and Staff clarify orders Special Needs: Heart tones Miscellaneous Interventions: Pelvic Comp w/OB cult Established Patient Charge Established Patient Point Assignment: 125 Established Patient Point Charge: EP Level 4 (120-155) Assessment & Plan Diagnosis / Problem List (1) Supervision of high risk , unspecified, third trimester: Status: Acute (2) PKU (phenylketonuria): Status: Acute Plan Assessment Patient is a woman who underwent Group B Streptococcus (GBS) screening via rectovaginal culture swab. Recent ultrasound from July 18, 2025 at [facility] medicine showed estimated weight of 2546 grams at 78th percentile with abdominal circumference at 94th percentile. Additional measurements included head circumference 63, biparietal diameter 74, and femur length 30, with amniotic fluid index of 16.5 and cephalic presentation. Patient reports mild discomfort following recent activity but denies contractions. heart rate monitoring performed with normal findings at 145 bpm. Plan - GBS culture collected (rectovaginal swab) - Continue routine care - Follow up in one week - Ultrasound at time of admission for delivery to estimate weight 1. Progress Reviewed gestational age, growth, and heart rate. Planned frequent visits (every 2 weeks until 36 weeks, then weekly). 2. Instructed patient to monitor movements and report decreases immediately. 3. Testing Counseled on routine third-trimester labs per guidelines. Discussed potential need for ultrasound or monitoring based on risk factors. 4. Preeclampsia Precaution Educated on preeclampsia signs: severe headache, vision changes, right upper quadrant pain, sudden swelling. Advised urgent reporting of symptoms and discussed blood pressure monitoring if high risk. 5. Labor Precautions Reviewed labor signs: regular contractions, pelvic pressure, back pain, bleeding, or fluid leakage. Instructed to seek immediate care for these symptoms. 6. Lifestyle and Delivery Preparation Reinforced vitamins, nutrition, and safe activity. Discussed plan, pain management, and . Advised on labor preparation (e.g., hospital bag) and expectations. 7. Psychosocial Support Assessed emotional well-being and offered resources for mental health or parenting support.
[2025-08-08 09:24] VITALS: BP 118/73; PULSE 112; RESP 18; TEMP 36.8; O2SAT 98; BMI 31.7
== END 2025-08-08 10:27 | disposition home or self-care (01) ==
LOC: HODSOBC 09:01
PROVIDERS: Supervising Provider Obstetrics & Gynecology; Visit Provider Obstetrics & Gynecology
DX: O09.893 Supervision of other high risk pregnancies, third trimester (principal); O99.283 Endocrine, nutritional and metabolic diseases complicating pregnancy, third trimester; O09.513 Supervision of elderly primigravida, third trimester; E70.1 Other hyperphenylalaninemias; Z36.85 Encounter for antenatal screening for Streptococcus B; Z3A.36 36 weeks gestation of pregnancy
CPT/HCPCS: 99214; G0463

== ENCOUNTER 2025-08-18 10:03 | Outpatient (AMB) | payer BC, SELFPAY ==
[2025-08-18 10:10] VITALS: BP 111/74; PULSE 98; RESP 18; TEMP 36.1; O2SAT 97; BMI 32.1
--- NOTE | 2025-08-18 10:10 | AMB.OBPNC ---
Vital Signs 08/18/25 10:10 Height 1.55 m Height Method Stated Weight 77.224 kg Weight Measurement Method Standing Scale BMI 32.1 BP 111/74 Blood Pressure Source Automatic Cuff Blood Pressure Location Right Upper Arm Position Sitting Respiration 18 Pulse 98 Pulse Source Monitor Temp 97.0 F Temp Source Temporal Artery Scan Pulse Oximetry (%) 97 Oxygen Delivery Method Room Air Allergies/Home Meds Allergies & Medications Allergies No Known Allergies Allergy (Verified 08/18/25 10:11) Medication Reconciliation vits no.126-ferrous fum 28 mg iron-folic acid 800 mcg tablet (Classic ) tab PO 01/25/25 [History Confirmed 08/18/25] Immunizations Immunizations Flu Vaccine in the Last 12 Months: No Flu Vaccine Exclusion Criteria: No Exclusion Criteria Care OB Visit Log OB Flowsheet Initial Weight: Not Recorded Date <del>?</del> EGA Weight BP Alb Glu CTX Pres Fundal ht FHR Mov Dilation Station Effacement Hx Notes Visit Note 03/03/25 <del>?</del> 14w 1d 55.055 kg 103/63 14 154 No VB or Cramping. Seeing [facility] to follow PKU 04/03/25 <del>?</del> 18w 4d 57.833 kg 109/69 18 135 active Patient is starting to feel movement. No bleeding or contractions. Has an appointment with [facility] later this week to have her structural survey performed. 04/28/25 <del>?</del> 22w 1d 61.462 kg 107/65 22 143 active Patient reports good movement no contractions no loss of fluids or vaginal bleeding. 06/07/25 <del>?</del> 27w 6d 68.663 kg 116/69 30 127 active Good movement no contractions no loss of fluids Patient is concerned because she has gained about 35 pounds so far. 06/30/25 <del>?</del> 31w 1d 71.384 kg 117/68 absent cephalic 32 145 active - Alanis Bentely is a 34-year-old female at 31 weeks and 1 day gestation with an estimated due date of August 31, with a past medical history of PKU, here for routine care. - She has active PKU and follows a low-protein diet, avoiding certain medications, dyes, coloring agents, flavoring agents, and aspartame. - She performs weekly home tests to monitor protein levels, which have been normal. - She is followed by [facility] for her high-risk . - She inquired about caffeine intake during . - She asked about epidurals and their association with C-sections. - Continue taking vitamins - Next appointment in 2 weeks - Weekly visits after 35 weeks - Continue weekly home tests to monitor protein levels - Maintain low-protein diet and avoid certain medications, dyes, coloring agents, flavoring agents, and aspartame due to PKU - Continue MFM follow-up 07/12/25 <del>?</del> 32w 6d 73.595 kg 116/72 absent cephalic 33 146 active - She reports the baby is active with no contractions. - She continues to work and remains physically active. - She inquires about RSV vaccination timing as she will be 33 weeks tomorrow. - She reports baby becomes active at night, particularly after eating dinner late. - Obtain influenza, RSV, and Tdap vaccines at pharmacy ([employer] or [employer]) - Follow up in 2 weeks - After next visit, appointments will become weekly 08/18/25 <del>?</del> 38w 1d 77.224 kg 111/74 absent cephalic 39 145 active - She reports no contractions currently, though had more Roque Salinas contractions over the last 2 weeks which have now decreased. - This morning she experienced what felt like urinary leakage that went down her leg. - Did not notice any particular smell - Has not had any ongoing leakage since the single episode a couple hours prior to visit - Reports baseline increased vaginal discharge that predates - She denies any gush of fluid or continuous leaking. - Patient desires natural and is approaching her due date in approximately 2 weeks. - Administer penicillin in labor due to positive GBS culture - Check cervix at 39 weeks - Perform membrane sweeping at 39 weeks visit to promote labor - Schedule ultrasound at next visit for weight measurement - If leaking episode recurs, come to hospital for rupture of membranes test (amnisure test) VAHID Calculator Estimated Delivery Date Method Current WG Current Estimate 08/31/25 LMP (Certain) 38w 1d Other Estimates 09/02/25 Ultrasound #1 37w 6d Expected Delivery Route/Plan Anticipate . Specific Issue/Plans Pt has PKU: Follows special diet and gets weekly lab work. Follows at [facility]. Co-manage with [facility] AMA: Level II U/S and NIPT Labs 01/28/24 [facility] on chart: A+/Ab-/Rubella Nonimmune/RPR NR/HIV-/HepBSag-/HepC-/Urine cx-/GC-/Chlam-/Hgb 12.4 NIPT pending Notes Visit Date: 06/07/25 Last Updated by: Mary Ellen Tenorio (OB Clinic)MD 1 hour glucose was ordered. Patient states this is fine to take with PKU and she ran up by her physicians. She is following up with [facility] next week for an ultrasound for size. She was given information for . Reassurance given about weight gain. Baby is measuring big today by Ciaran around 31 weeks. Visit Date: 04/28/25 Last Updated by: Mary Ellen Tenorio (OB Clinic)MD Is doing well. Discussed breast-feeding. She states her left nipple is inverted. She is interested in breast-feeding. She is interested in going natural but also getting an epidural. She will write down her breast preferences. 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 She is getting her weekly blood drawn by her and sending it into [facility] to check for PKU status. We will order a glucose challenge test next time she states this is not a problem with her PKU. Visit Date: 03/03/25 Last Updated by: Mary Ellen Tenorio (OB Clinic)MD Pt has had NT/early US with [facility] and is followed at [facility] for her PKU. Ok to co-manage with [facility] and deliver here at [facility] unless pt becomes complicated. Office Procedures OBC Clinic LOC & Office Proc's Nursing/Assessment Patient Status: Established Patient OB Clinic Nursing Assessment: Medication Reconciliation, Update PMH in EMR and Vital Signs OB Clinic Coordination of Care: Complex Care and Chronic Disease 1-5, Education Complex Pt/Fam, Consent,records obtained, informed consent, Lab and Imaging orders, Results/Orders obtained and Staff clarify orders Special Needs: Heart tones Established Patient Charge Established Patient Point Assignment: 140 Established Patient Point Charge: EP Level 4 (120-155) Assessment & Plan Diagnosis / Problem List (1) PKU (phenylketonuria): Status: Acute (2) AMA (advanced maternal age) primigravida 35+: Status: Acute Qualifiers: Trimester: second trimester Qualified Code(s): O09.512 - Supervision of elderly primigravida, second trimester (3) Supervision of high risk , unspecified, third trimester: Status: Acute Plan Problem List - Group B Streptococcus colonization in - at 38 weeks 1 day gestation Assessment 38-week and 1-day patient with positive Group B Streptococcus (GBS) culture requiring penicillin during labor. Patient experienced a single episode of fluid leakage down her leg this morning without ongoing leakage, odor, or change from baseline vaginal discharge. heart rate is 145 beats per minute, which is normal. Patient reports decreased Roque Salinas contractions over the past week compared to the previous two weeks, consistent with descent and uterine positioning changes. Patient desires natural and has had an uncomplicated course to date. Plan - Administer penicillin in labor due to positive GBS culture - Check cervix at 39 weeks - Perform membrane sweeping at 39 weeks visit to promote labor - Schedule ultrasound at next visit for weight measurement - If leaking episode recurs, come to hospital for rupture of membranes test (amnisure test) 1. Progress Reviewed gestational age at 38 weeks and 1 day, growth, and heart rate at 145 bpm (normal). Planned frequent visits with next visit at 39 weeks for cervical check and membrane sweeping. 2. Instructed patient to monitor movements and report decreases immediately. 3. Testing Counseled on routine third-trimester labs per guidelines. Discussed ultrasound planned for next visit at 39 weeks for weight measurement. 4. Preeclampsia Precaution Educated on preeclampsia signs: severe headache, vision changes, right upper quadrant pain, sudden swelling. Advised urgent reporting of symptoms and discussed blood pressure monitoring if high risk. 5. Labor Precautions Reviewed labor signs: regular contractions, pelvic pressure, back pain, bleeding, or fluid leakage. Instructed to seek immediate care for these symptoms. Patient reported possible fluid leakage this morning but was reassured it was likely urinary incontinence from pressure on bladder. Advised to return if similar leaking occurs again for rupture of membranes testing. 6. Lifestyle and Delivery Preparation Reinforced vitamins, nutrition, and safe activity. Discussed plan (patient desires natural ), pain management options including epidural safety, and . Advised on labor preparation and expectations. Discussed membrane sweeping procedure for next visit to promote natural labor onset. 7. Psychosocial Support Assessed emotional well-being regarding first-time anxiety and provided reassurance about natural capabilities.
== END 2025-08-18 10:33 | disposition home or self-care (01) ==
LOC: HODSOBC 10:03
PROVIDERS: Supervising Provider Obstetrics & Gynecology; Visit Provider Obstetrics & Gynecology
DX: O09.513 Supervision of elderly primigravida, third trimester (principal); O09.893 Supervision of other high risk pregnancies, third trimester; O99.283 Endocrine, nutritional and metabolic diseases complicating pregnancy, third trimester; E70.1 Other hyperphenylalaninemias; O99.820 Streptococcus B carrier state complicating pregnancy; O47.1 False labor at or after 37 completed weeks of gestation; Z3A.38 38 weeks gestation of pregnancy
CPT/HCPCS: 99214; G0463

== ENCOUNTER 2025-08-25 10:31 | Outpatient (AMB) | payer BC, SELFPAY ==
[2025-08-25 10:40] VITALS: BP 130/70; PULSE 101; RESP 18; TEMP 36.2; O2SAT 98; BMI 32.1
--- NOTE | 2025-08-25 10:40 | OBCLNT_ITS ---
Vital Signs 08/25/25 10:40 Height 1.55 m Height Method Stated Weight 77.281 kg Weight Measurement Method Standing Scale BMI 32.1 BP 130/70 Blood Pressure Source Automatic Cuff Blood Pressure Location Right Upper Arm Position Sitting Respiration 18 Pulse 101 H Pulse Source Monitor Temp 97.1 F Temp Source Temporal Artery Scan Pulse Oximetry (%) 98 Oxygen Delivery Method Room Air Allergies/Home Meds Allergies & Medications Allergies No Known Allergies Allergy (Verified 08/25/25 11:43) Medication Reconciliation vits no.126-ferrous fum 28 mg iron-folic acid 800 mcg tablet (Classic ) 1 tab PO QDAY 01/25/25 [History Confirmed 08/25/25] Immunizations Immunizations Flu Vaccine in the Last 12 Months: No Flu Vaccine Exclusion Criteria: No Exclusion Criteria Care OB Visit Log OB Flowsheet Initial Weight: Not Recorded Date -?-?-?-?-?-?-?-?-?-?-?-?- EGA Weight BP Alb Glu CTX Pres Fundal ht FHR Mov Dilation Station Effacement Hx Notes Visit Note 03/03/25 -?-?-?-?-?-?-?-?-?-?-?-?- 14w 1d 55.055 kg 103/63 14 154 No VB or Cramping. Seeing Anjel Gray to follow PKU 04/03/25 -?-?-?-?-?-?-?-?-?-?-?-?- 18w 4d 57.833 kg 109/69 18 135 active Patient is starting to feel movement. No bleeding or contractions. Has an appointment with Anjel martinez's later this week to have her structural survey performed. 04/28/25 -?-?-?-?-?-?-?-?-?-?-?-?- 22w 1d 61.462 kg 107/65 22 143 active Patient reports good movement no contractions no loss of fluids or vaginal bleeding. 06/07/25 -?-?-?-?-?-?-?-?-?-?-?-?- 27w 6d 68.663 kg 116/69 30 127 active Good movement no contractions no loss of fluids Patient is con cerned because she has gained about 35 pounds so far. 06/30/25 -?-?-?-?-?-?-?-?-?-?-?-?- 31w 1d 71.384 kg 117/68 absent cephalic 32 145 active - Alanis Bentley is a 34-year-old female at 31 weeks and 1 day gestation with an estimated due date of August 31, with a past medical history of PKU, here for routine care. - She has active PKU and follows a low-p rotein diet, avoiding certain medications, dyes, coloring agents, flavoring agents, and aspartame. - She performs weekly home tests to nettie tor protein levels, which have been normal. - She is followed by [facility] for her high-ri sk . - She inquired about caffeine intake dur ing . - She asked about epidurals and their association with C-sections. - Continue taking vitamins - Next appointment in 2 weeks - Weekly visits after 35 weeks - Continue weekly home tests to monitor protein levels - Maintain low-protein diet and avoid ce rtain medications, dyes, coloring agents, flavoring agents, and aspartame due to PKU - Continue M follow-up 07/12/25 -?-?-?-?-?-?-?-?-?-?-?-?- 32w 6d 73.595 kg 116/72 absent cephalic 33 146 active - She reports the baby is active with no contractions. - She continues to work and remains phys ically active. - She inquires about RSV vaccination cy ing as she will be 33 weeks tomorrow. - She reports baby becomes active at [facility], particularly after eating dinner late. - Obtain influen za, RSV, and Tdap vaccines at pharmacy ([facility] or [facility]) - Follow up in 2 weeks - After next visit, appointments will be come weekly 08/18/25 -?-?-?-?-?-?-?-?-?-?-?-?- 38w 1d 77.224 kg 111/74 absent cephalic 39 145 active - She reports no cont ractions currently, though had more Roque Salinas contractions over the last 2 weeks which have now decreased. - This morning she experienced what felt like urinary leakage that went down her leg. - Did not notice any particular smell - Has not had any ongoing leakage sinc e the single episode a couple hours prior to visit - Reports baseline increased vaginal d ischarge that predates - She denies any gush of fluid or contin uous leaking. - Patient desires natural and is a pproaching her due date in approximately 2 weeks. - Administer pen icillin in labor due to positive GBS culture - Check cervix at 39 weeks - Perform membrane sweeping at 39 weeks visit to promote labor - Schedule ultrasound at next visit for weight measurement - If leaking episode recurs, come to [facility] for rupture of membranes test (amnisure test) 08/25/25 -?-?-?-?-?-?-?-?-?-?-?-?- 39w 1d 77.281 kg 130/70 absent cephalic 40 139 active No contractions, LOF, VB and reports good FM. Denies BRADSHAW, VC, and epigastric pain. - Induction of labor scheduled for ThursdaySeptember 04 at 40 weeks 4 days gestation - Patient to call labor and delivery uni t at [phone] (direct number) at 7:30 AM on September 04 for admission time and room assignment - Induction process will include cervica l ripening phase if cervix <3 cm dilated using misoprostol tablets or dinoprostone vaginal insert, followed by artificial rupture of membranes and oxytocin administration - Complete ultrasound today to assess fe mina weight, amniotic fluid index, placenta, and well-being - Non-stress test (NST) for 20 minutes w ith heart rate monitoring - Patient advised to increase fluid inta ke when experiencing hiccups - No further office appointments sched ed prior to induction VAHID Calculator Estimated Delivery Date Method Current WG Current Estimate 08/31/25 LMP (Certain) 39w 1d Other Estimates 09/02/25 Ultrasound #1 38w 6d Expected Delivery Route/Plan Anticipate . Specific Issue/Plans Pt has PKU: Follows special diet and gets weekly lab work. Follows at [facility]. Co-manage with [facility] AMA: Level II U/S and NIPT Labs 01/28/24 [facility] on chart: A+/Ab-/Rubella Nonimmune/RPR NR/HIV-/HepBSag-/HepC-/Urine cx-/GC-/Chlam-/Hgb 12.4 NIPT pending Notes Visit Date: 06/07/25 Last Updated by: Mary Ellen Tenorio (OB Clinic)MD 1 hour glucose was ordered. Patient states this is fine to take with PKU and she ran up by her physicians. She is following up with [facility] next week for an ultrasound for size. She was given information for . Reassurance given about weight gain. Baby is measuring big today by Ciaran around 31 weeks. Visit Date: 04/28/25 Last Updated by: Mary Ellen Tenorio (OB Clinic)MD Is doing well. Discussed breast-feeding. She states her left nipple is inverted. She is interested in breast-feeding. She is interested in going natural but also getting an epidural. She will write down her breast preferences. 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 She is getting her weekly blood drawn by her and sending it into children to check for PKU status. We will order a glucose challenge test next time she states this is not a problem with her PKU. Visit Date: 03/03/25 Last Updated by: Mary Ellen Tenorio (OB Clinic)MD Pt has had NT/early US with [facility] and is followed at [facility] for her PKU. Ok to co-manage with [facility] and deliver here at [facility] unless pt becomes complicated. Office Procedures OBC Clinic LOC & Office Proc's Nursing/Assessment Patient Status: Established Patient OB Clinic Nursing Assessment: Medication Reconciliation, Update PMH in EMR and Vital Signs OB Clinic Coordination of Care: Complex Care and Chronic Disease 1-5, Education Complex Pt/Fam, Consent,records obtained, informed consent, Lab and Imaging orders, Results/Orders obtained and Staff clarify orders Special Needs: Heart tones Established Patient Charge Established Patient Point Assignment: 140 Established Patient Point Charge: EP Level 4 (120-155) Assessment & Plan Diagnosis / Problem List (1) Supervision of high risk , unspecified, third trimester: Status: Acute (2) PKU (phenylketonuria): Status: Acute Plan Problem List - Post-term - macrosomia Assessment 40-week patient at term with macrosomia (94th percentile) who has not spontaneously entered labor. Patient is experiencing hiccups described as brief vibratory movements lasting less than 5 seconds. heart rate is normal at 139 bpm. Patient is scheduled for labor induction at 40 weeks and 4 days to prevent complications associated with post-term and large size, including shoulder dystocia, oligohydramnios, and heart rate abnormalities. Plan - Induction of labor scheduled for ThursdaySeptember 04 at 40 weeks 4 days gestation - Patient to call labor and delivery unit at [phone] (direct number) at 7:30 AM on September 04 for admission time and room assignment - Induction process will include cervical ripening phase if cervix <3 cm dilated using misoprostol tablets or dinoprostone vaginal insert, followed by artificial rupture of membranes and oxytocin administration - Complete ultrasound today to assess weight, amniotic fluid index, placenta, and well-being - Non-stress test (NST) for 20 minutes with heart rate monitoring - Patient advised to increase fluid intake when experiencing hiccups - No further office appointments scheduled prior to induction 1. Progress Reviewed gestational age (40 weeks, due ), growth (baby measuring at 94th percentile), and heart rate (139 bpm, normal). Planned induction on September 04 due to large size to avoid going beyond 41 weeks. 2. Instructed patient to monitor movements and report decreases immediately. 3. Testing Counseled on complete ultrasound today including weight estimation, amniotic fluid index (YOLANDA), placenta, and ovaries assessment. Discussed ultrasound and non-stress test (NST) for 20 minutes at hospital today. 4. Preeclampsia Precaution Educated on preeclampsia signs: severe headache, vision changes, right upper quadrant pain, sudden swelling. Advised urgent reporting of symptoms and discussed blood pressure monitoring if high risk. 5. Labor Precautions Reviewed signs to report immediately including spontaneous labor onset. Instructed to seek immediate care and come to hospital if labor begins naturally before scheduled induction. 6. Lifestyle and Delivery Preparation Discussed detailed induction process including cervical ripening phase with misoprostol or dinoprostone if cervix <3cm, followed by membrane rupture and oxytocin administration. Advised on hospital admission process for September 04 - call [phone] (direct unit number) at 7:30 AM for room assignment and timing. Explained average induction duration of 48 hours and hospital stay until delivery. 7. Psychosocial Support Addressed patient concerns about movements (explained baby hiccups and recommended increased hydration). Provided reassurance about safety of induction process and medical necessity due to size.
== END 2025-08-25 11:08 | disposition home or self-care (01) ==
LOC: HODSOBC 10:31
PROVIDERS: Supervising Provider Obstetrics & Gynecology; Visit Provider Obstetrics & Gynecology
DX: O09.893 Supervision of other high risk pregnancies, third trimester (principal); O99.283 Endocrine, nutritional and metabolic diseases complicating pregnancy, third trimester; E70.1 Other hyperphenylalaninemias; O36.63X0 Maternal care for excessive fetal growth, third trimester, not applicable or unspecified; Z3A.39 39 weeks gestation of pregnancy
CPT/HCPCS: 99214; G0463

== ENCOUNTER 2025-08-25 11:27 | Outpatient (CLI) | payer BC, SELFPAY ==
--- NOTE | 2025-08-25 11:42 | XR_ITS ---
Examination: Complete OB ultrasound greater than 14 weeks Date and time of exam: August 25, 2025, 1249 hours INDICATIONS: Supervision of normal Findings: Viable intrauterine single fetus with single amniotic sac presentation cephalic Cardiac motion 145 bpm Placenta fundal grade 3 Medical cord insertion seen Amniotic fluid index 12.0 cm Cervix 3.7 cm Ovaries obscured by the fetus. Composite estimated gestational age based on BPD, head circumference, abdominal circumference, femur length is 38 weeks 6 days Estimated weight 3639.1 g. Survey of intracranial anatomy, spinal anatomy, abdominal anatomy, four-chamber heart performed with no abnormalities identified. Impression: Viable intrauterine gestation cephalic presentation.
--- NOTE | 2025-08-25 11:45 | XR_ITS ---
Examination: Biophysical profile, ultrasound Date and time of exam: August 25, 2025, 1207 hours INDICATIONS: Unknown presentation unknown weight Technique: Multiple transabdominal sonographic images of the pelvis abdomen obtained. Attention is directed to the breathing movement, gross body movement, amniotic fluid volume and tone. Findings: Amniotic fluid index 12.9 cm Total biophysical profile is 8 of 8. breathing movement is 2. Gross body movement is 2. tone is 2. Qualitative amniotic fluid volume is 2 Impression: Biophysical profile is 8 of 8.
[2025-08-25 12:32] VITALS: BP 126/71; PULSE 91; PULSE 94; RESP 20; RESP 97; TEMP 37.2; O2SAT 95; O2SAT 97; BMI 32.3
[2025-08-25 12:37] VITALS: PULSE 86; O2SAT 95
[2025-08-25 12:42] VITALS: PULSE 92; O2SAT 97
[2025-08-25 12:47] VITALS: PULSE 90; O2SAT 97
[2025-08-25 12:52] VITALS: PULSE 94; O2SAT 97
[2025-08-25 12:57] VITALS: PULSE 101; O2SAT 100
--- NOTE | 2025-08-28 07:34 | PC.NURSE ---
PT CALLED, ASKED FOR BED AVAILABILITY FOR IOL, INFORMED OF NO BEDS AVAILABLE AT THIS TIME, WILL CALL ONCE BED BECOMES AVAILABLE, EDUCATED ON KICK COUNT AND LABOR PRECAUTIONS, PT VERBALIZED UNDERSTANDING
== END 2025-08-25 13:18 | disposition home or self-care (01) ==
LOC: S4S1 11:28 → S4SX 11:29
PROVIDERS: Referring Provider Obstetrics & Gynecology; Visit Provider Obstetrics & Gynecology
DX: Z34.03 Encounter for supervision of normal first pregnancy, third trimester (principal); Z36.9 Encounter for antenatal screening, unspecified; Z3A.38 38 weeks gestation of pregnancy
CPT/HCPCS: 59025; 76805; 76819

== ENCOUNTER 2025-09-01 20:20 | Inpatient (IN) | payer BC, SELFPAY ==
[2025-09-01] VITALS (35 sets, daily range): BP systolic 108–160; BP diastolic 54–85; PULSE 91–148; RESP 20–97; TEMP 36.6–36.7; O2SAT 94–100; BMI 32.1
[2025-09-01] MEDS: fentaNYL CIT INJ 50 mCg/ML AMP 2ML 100 MCG IVP (21:50)
[2025-09-01] MEDS: RINGERS LACTATED 1000 ML 1,000 ML 100 ML IV ×2 (22:00→23:37)
[2025-09-01 22:03] LABS: Basophils # (Auto) 0.0 Thou/mm3 (0.0-0.2); Basophils % (Auto) 0 % (0-2.5); Eosinophils # (Auto) 0.1 Thou/mm3 (0.0-0.5); Eosinophils % (Auto) 1 % (0-10); Hematocrit 36.2 % (36.0-46.0); Hemoglobin 12.5 g/dL (12.0-16.0); Immature Granulocytes Auto 0.09 Thou/mm3 (0.00-0.00); Lymphocytes # (Auto) 1.2 Thou/mm3 (1.0-4.8); Lymphocytes % (Auto) 9 % (10-50); Mean Corpuscular HGB Conc 34.5 g/dl (31.0-37.0); Mean Corpuscular Hemoglobin 31.2 pg (25.0-35.0); Mean Corpuscular Volume 90 fL (80-100); Monocytes # (Auto) 0.8 Thou/mm3 (0.0-0.8); Monocytes % (Auto) 6 % (0-12); Neutrophils # (Auto) 11.5 Thou/mm3 (1.8-7.7); Neutrophils % (Auto) 84 % (37-80); Nucleated Red Blood Cell # 0.00 Thou/mm3 (0.00-0.00); Nucleated Red Blood Cell % 0 /100 WBC (0); Platelet Count 237 Thou/mm3 (140-440); RDW Standard Deviation 40.4 fL (36.4-46.3); Red Blood Count 4.01 Miln/mm3 (4.00-5.20); White Blood Count 13.6 Thou/mm3 (3.6-11.0)
[2025-09-01 22:49] LABS: Syphilis Nonreactive (Nonreactive)
[2025-09-01] MEDS: Ampicillin Inj 2,000 MG in SODIUM CHLORIDE 0.9% (POP) 100 ML 200 MG IV (23:37)
[2025-09-02] VITALS (284 sets, daily range): BP systolic 70–158; BP diastolic 35–85; PULSE 76–130; RESP 15–20; TEMP 36.6–38.7; O2SAT 82–100
[2025-09-02] MEDS: Ampicillin Inj 1,000 MG in SODIUM CHLORIDE 0.9% (Popper) 50 ML 50 MG IV ×4 (03:29→15:30)
--- NOTE | 2025-09-02 05:09 | PD.LDHP ---
Documentation for date of: 09/02/25 OB Labor/Induct. HPI History of Present Illness Chief complaint: Contractions : 1 Para: 0 Term pregnancies: 0 pregnancies: 0 Living children: 0 History of Abortions: Spontaneous and Elective: 0 History of Vaginal deliveries: 0 History of sections: No History of : No Date of last menstrual period: 11/24/24 VAHID: 08/31/25 Gestational Age (weeks): 40 Gestational Age (days): 1 Gestational age based on last menstrual period: 40 History of present illness: The patient is a 34-year-old G1, P0 at 40 and 1 sevenths weeks who presented around 2019 on 09/01/2025 very uncomfortable 1 to 2 cm dilated. Patient was sobia regularly. As she was past 40 weeks and AMA the decision was made to admit her in early labor. She was admitted and had an epidural shortly after admission. After epidural placement, she progressed to 3 cm dilated and was sobia every 3 minutes. Strep screen is negative. EFW was 8 to 8-1/2 pounds and there was some concern with a large abdominal circumference on the baby. The patient herself is positive for PKU and has been comanaged with maternal- medicine in [place] for the entire . She is positive for group B strep and ampicillin was started. History of Present Dating criteria: LMP confirmed by 1st trimester US Adequate Care: Yes Ultrasounds: normal mid trimester US Obstetrical complications: none Medical complications: other (Patient herself is positive for PKU, AMA) Labs Maternal Blood Type: A Pos Labs: Positive: Group Beta Strep, Negative: RPR, Hepatitis B, Rubella Titre, HIV, Chlamydia and Gonorrhea and Unknown: Herpes Type 1, Herpes Type 2 and Covid-19 Review of Systems Review of Systems Narrative Review of Systems: No loss of fluids or heavy vaginal bleeding prior to admission. Good movement. Past Medical History Surgical History SURGICAL: Negative Section Past Medical History Comments PMH COMMENT: Patient denies any significant past medical history except she is positive for PKU and has to eat a special diet. She has been comanaged with maternal- medicine this . She is AMA and NIPT screening was normal as well as her level 2 ultrasound. Meds Home Medications and Allergies Home Medications ?Medication ?Instructions ?Recorded ?Confirmed ?Type vits no.126-ferrous fum 1 tab PO QDAY 01/25/25 09/01/25 History 28 mg iron-folic acid 800 mcg tablet (Classic ) nut.tx for PKU with iron no.45 22 1 ea PO QDAY 09/01/25 09/01/25 History gram-410 kcal/100 gram oral powder (Phenyl-Free 2 PKU) sapropterin 100 mg soluble tablet 100 mg PO QDAY 09/01/25 09/01/25 History Allergies Allergy/AdvReac Type Severity Reaction Status Date / Time phenylalanine Allergy Severe Confusion Verified 09/01/25 22:20 soy Allergy Severe Confusion Verified 09/01/25 21:48 meats Allergy Severe Confusion Uncoded 09/01/25 21:48 proteins Allergy Severe Confusion Uncoded 09/01/25 21:48 tofu Allergy Severe Confusion Uncoded 09/01/25 21:48 OB Exam Physical Exam Vital signs: Temp Pulse Resp BP Pulse Ox 98.5 F 118 H 18 129/84 99 09/02/25 03:54 09/02/25 05:05 09/02/25 03:54 09/02/25 05:05 09/02/25 05:05 Routine Abdominal Exam Abdominal: Present soft Comments: Fundal height consistent with EFW of 8 to 8-1/2 pound Detailed Labor and Delivery Exam Dilation (cm): 1-2 Effacement (%): 80 Cervix position: mid station: -2 Consistency: medium Presentation: Vertex Membranes: intact monitor accelerations: 15x15 monitor decelerations: None terminal carman variability: Moderate (11-25) Contraction frequency (min): Every 3 to 5 minutes Tachysystole: No Contraction intensity: Moderate OB Results Labs 09/01/25 21:40 Labs: Short CBC 09/01/25 Range/Units 21:40 WBC 13.6 H (3.6-11.0) Thou/mm3 Hgb 12.5 (12.0-16.0) g/dL Hct 36.2 (36.0-46.0) % Plt Count 237 (140-440) Thou/mm3 OB Assessment & Plan Assessment and Plan (1) Supervision of high risk , unspecified, third trimester: Status: Acute (2) PKU (phenylketonuria): Status: Acute Assessment and plan: Patient must follow specific diet. She has been followed with maternal- medicine this . (3) AMA (advanced maternal age) primigravida 35+: Status: Acute Assessment and plan: Normal NIPT and level 2 ultrasound (4) Mother positive for group B Streptococcus colonization: Status: Acute Assessment and plan: Ampicillin started in labor Additional Plan Induction method: other (AROM and Pitocin if contractions space.) Plan: anticipate NVD and GBS prophylaxis tx (3) AMA (advanced maternal age) primigravida 35+ Qualifiers: Trimester: second trimester Qualified Code(s): O09.512 - Supervision of elderly primigravida, second trimester
[2025-09-02] MEDS: OXYTOCIN in NS 30 units 30 UNIT/500 ML BAG IV (05:23)
[2025-09-02] MEDS: ONDANSETRON INJ 2 MG/ML INJ 2 ML 4 MG IVP (05:27)
--- NOTE | 2025-09-02 10:25 | PD.LDPN ---
Documentation for date of: 09/02/25 OB Labor Progress Note Pain Control Pain control: tolerating well and epidural Pelvic Exam Dilation (cm): 6.5 Effacement (%): 80 station: -2 Amniotic membrane status: Ruptured Contractions Monitor mode: Internal Contraction frequency: 1-5 Contraction pattern: Coupling Contraction intensity: Moderate Status status: Category l Assessment and Plan Pitocin rate (mU/min): 3 Assessment: active labor Plan OB labor note: continuous present management Comments: Continue Pitocin augmentation. Anticipate . EFW on baby 8 to 8-1/2 pounds. History of Present Illness HPI The patient is a 34-year-old G1, P0 at 40 and 1 sevenths weeks who presented around 2019 on 09/01/2025 very uncomfortable 1 to 2 cm dilated. Patient was sobia regularly. As she was past 40 weeks and AMA the decision was made to admit her in early labor. She was admitted and had an epidural shortly after admission. After epidural placement, she progressed to 3 cm dilated and was sobia every 3 minutes. Strep screen is negative. EFW was 8 to 8-1/2 pounds and there was some concern with a large abdominal circumference on the baby. The patient herself is positive for PKU and has been comanaged with maternal- medicine in [place] for the entire . She is positive for group B strep and ampicillin was started. She was 3 cm dilated overnight. At 0930, I ruptured her her bag and copious bloody clear fluid was noted. IUPC was placed. Patient's cervix was 6 to 7 cm 80% -2 position with no molding noted. Her cervix is very stretchy
--- NOTE | 2025-09-02 14:45 | PD.LDPN ---
Documentation for date of: 09/02/25 OB Labor Progress Note Pain Control Pain control: tolerating well and epidural Pelvic Exam Dilation (cm): 8-9 Effacement (%): 90 station: -1 Amniotic membrane status: Ruptured Contractions Monitor mode: Internal Contraction frequency: 1-3 Contraction pattern: Coupling Contraction intensity: Moderate Status status: Category l Assessment and Plan Assessment: active labor Plan OB labor note: continuous present management History of Present Illness HPI The patient is a 34-year-old G1, P0 at 40 and 1 sevenths weeks who presented around 2019 on 09/01/2025 very uncomfortable 1 to 2 cm dilated. Patient was sobia regularly. As she was past 40 weeks and AMA the decision was made to admit her in early labor. She was admitted and had an epidural shortly after admission. After epidural placement, she progressed to 3 cm dilated and was sobia every 3 minutes. Strep screen is negative. EFW was 8 to 8-1/2 pounds and there was some concern with a large abdominal circumference on the baby. The patient herself is positive for PKU and has been comanaged with maternal- medicine in [place] for the entire . She is positive for group B strep and ampicillin was started. She was 3 cm dilated overnight. At 0930, I ruptured her her bag and copious bloody clear fluid was noted. IUPC was placed. Patient's cervix was 6 to 7 cm 80% -2 position with no molding noted. Her cervix is very stretchy. She was reexamined at 1540 and progressed to 8 to 9 cm 90% with 0 station. She is in a good contraction pattern.
[2025-09-02] MEDS: ACETAMINOPHEN 500 MG TABLET 1000 MG PO (15:43)
[2025-09-02] MEDS: ceFAZolin/D5W 2 GM IV 2 GM/100 ML BAG IV (17:07)
[2025-09-02] MEDS: FAMOTIDINE INJ 10 MG/ML VIAL 2 ML 20 MG IV (17:07)
--- NOTE | 2025-09-02 18:46 | ESOP_ITS ---
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 She was 40 1/7 weeks EGA. She had an epidural placed shortly after admission secondary to pain. She ended up with an AROM, placement of a left an IUPC and Pitocin augmentation. The patient developed a fever of 101.5 when she was 10 cm dilated. She was given Tylenol and had been on ampicillin all day for positive strep. The baby was noted to be tachycardic in the 160s with good variability. She pushed about 1/2-hour to 40 minutes largely ineffectively. The patient had a dense epidural, and declined having her epidural turned off or down. The patient stated she did not want to feel any pain at all. As she was remote from delivery and the head was not descending at all with pushing attempts, and she had a fever with tachycardia the patient was offered options including pushing longer, turning her epidural down, or proceeding with primary . After discussing the risks and benefits of a primary with the patient her , a shared informed decision was made to proceed with a primary low- transverse section. Pre-Op diagnosis: 1. IUP 40 1/7 weeks 2. Maternal fever remote from delivery 3. tachcardia remote from delivery 4. Poor descent with 40 minutes of maternal pushing efforts 5. +GBBS with multiple doses of ampicillin Post-Op diagnosis: Same Anesthesia type: Epidural (Bolused epidural) Procedure description: After obtaining informed consent, the patient was brought back to the operating room and her epidural was bolused to obtain excellent anesthesia. She was then prepped and draped in dorsal supine position with a leftward tilt in a normal sterile fashion. A Verdugo catheter had been inserted during the patient's labor. The patient was given 2 g of Ancef by anesthesia. A Pfannenstiel skin incision was made with a scalpel and carried down to the underlying fascia. The fascia was incised in the midline, and the fascial incision extended laterally using Griffith scissors. The superior aspect of the fascia was grasped with Carlyn clamps, and the underlying rectus muscles dissected off using blunt and sharp dissection. This was repeated in the inferior aspect of the incision. The rectus muscles were in the midline, and the peritoneum was picked up and entered sharply with Metzenbaums. This was extended superiorly and inferiorly with good visualization of the bladder. The bladder blade was inserted and the uterus was incised in a low transverse fashion with a scalpel above the bladder reflection. The uterine incision was extended laterally using blunt dissection with the surgeon's fingers. The bag of water was ruptured and clear fluid was noted. The bladder blade was removed and the was delivered atraumatically. As the baby was vigorous at , delayed cord clamping was performed for approximately one minute. The cord was clamped and cut and the infant was handed off to the waiting pediatric staff. Cord gases were saved. Cord blood was sent. The placenta was then manually removed and the uterus exteriorized and cleared of all clots and debris. The uterine incision was repaired using 0 Monocryl in a running locked fashion. Excellent hemostasis was noted. The uterus was returned to the patient's abdominal cavity, and copious irrigation carried out with warm normal saline. The uterine incision was reexamined several times and noted be hemostatic. A small piece of SNO hemostatic material was placed between the lower uterine segment and bladder flap to obtain excellent hemostasis. After ensuring the rectus muscle was hemostatic, these were reapproximated in the midline using a running suture of 0 Monocryl. The fascia was closed with 0 Vicryl in a running fashion. The subcutaneous tissues were irrigated, and found to be hemostatic. These were reapproximated using interrupted [id number] sutures of 2-0 plain. The skin was closed with subcuticular suture of 4-0 Monocryl. The patient tolerated the procedure well, sponge, lap, instrument, and needle counts were correct x 2. The patient went to the recovery area awake and in stable condition. Fluids: crystalloid Fluid amount (mL): 2,000 Urine output (mL): 450 Specimen: none Implants: None Estimated blood loss (ml): 450 Findings: Liveborn female in the OT presentation with no nuchal cord or meconium. Apgars were 9 and 9. Weight was 7 pounds 15 ounces. The placenta was complete spontaneous grossly normal uterus tubes ovaries appeared grossly normal. Complications: none Surgical staff Fidel BENJAMIN Operation Date: 09/02/25 17:15 <No data on this case meets the specified criteria> Diagnosis Discharge Diagnosis (1) Mother positive for group B Streptococcus colonization: Status: Acute (2) Supervision of high risk , unspecified, third trimester: Status: Acute (3) PKU (phenylketonuria): Status: Acute (4) AMA (advanced maternal age) primigravida 35+: Status: Acute (5) Chorioamnionitis, delivered, current hospitalization: Status: Acute Problem details: Ancef x 24 hours Problem List Completed Was Problem List Reviewed/Reconciled?: Yes (4) AMA (advanced maternal age) primigravida 35+ Qualifiers: Trimester: second trimester Qualified Code(s): O09.512 - Supervision of elderly primigravida, second trimester
--- NOTE | 2025-09-02 19:48 | PC.NURSE ---
x1 bag of LR/ pitocin 20mu in 1000ml given in OB OR, #2 bag of LR/pitocin 20mu in 1000ml hung before going out of OB OR to room 465.
[2025-09-02] MEDS: HYDROcodone/APAP 5/325 TABLET 1 TAB PO (21:02)
--- NOTE | 2025-09-02 21:11 | PD.LDDELS ---
Data (Roe) Data Hx Section: No Maternal Blood Type: A Pos Rubella Titre: Positive RPR: Non-reactive Labs: Positive: Group Beta Strep, Negative: RPR, Hepatitis B, HIV, Chlamydia and Gonorrhea and Unknown: Herpes Type 1 and Herpes Type 2 : 1 Term: 0 : 0 Livin Abortions: Spontaneous & Theraputic: 0 Delivery Data (Roe) Labor Data Initiation of labor: Augmentation Induction/Augmentation Agent: Pitocin ROM date: 09/02/25 ROM time: 03:30 Amniotic membrane rupture type: Spontaneous Amniotic fluid description: Clear and Light Meconium Delivery Data EDC: 09/20/25 EDC calculated by:: LMP/early US confirmation Date of arrival to unit: 09/01/25 Time of arrival to unit: 20:00 Onset of labor date: 09/02/25 Onset of labor time: 03:30 Complete dilation date: 09/02/25 Complete dilation time: 16:20 delivery date: 09/02/25 [place] delivery time: 17:35 Gestational age (weeks): 40 Gestational age (days): 1 Placenta delivery date: 09/02/25 Placenta delivery time: 17:35 Stage 1 total time: Labor - Stage 1 Duration 12 hours and 50 minutes Delivered by: Mary Ellen Tenorio ([facility]) Delivery nurse: Juli Castillo RN 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 at delivery: Yes Support person(s) at delivery: fob Delivery Method Delivery method: Low Transverse Presentation: Vertex Anesthesia Type Anesthesia Type: Epidural Anesthesia type: Epidural (Bolused epidural) Placenta Placenta delivery description: Manual Removal Cord blood sent to lab: Yes cord blood collection: Cord Blood Type Episiotomy Episiotomy description: None EBL Estimated blood loss (ml): 450 Umbilical Cord cord description: 3 Vessels Additional Procedures See op report for further details Complications Complications: None Data (Roe) [place] Data order: 1 's gender: Female Identification band number: [id number] weight (gms): 3605 g Weight (pounds): 7 lbs and 15.2 ozs length: 35.5 cm 1 minute: 9 5 minutes: 9
[2025-09-03] VITALS: BP 110/69; PULSE 65; RESP 19; TEMP 36.4; O2SAT 97
[2025-09-03] MEDS: KETOROLAC INJ 30 MG/ML VIAL IVP ×2 (00:15→06:16)
[2025-09-03] MEDS: RINGERS LACTATED 1000 ML 1,000 ML 100 ML IV (02:14)
[2025-09-03 04:30] VITALS: BP 99/66; PULSE 74; RESP 20; TEMP 36.4; O2SAT 97
[2025-09-03 06:12] LABS: Basophils # (Auto) 0.1 Thou/mm3 (0.0-0.2); Basophils % (Auto) 0 % (0-2.5); Eosinophils # (Auto) 0.0 Thou/mm3 (0.0-0.5); Eosinophils % (Auto) 0 % (0-10); Hematocrit 28.8 % (36.0-46.0); Hemoglobin 9.8 g/dL (12.0-16.0); Immature Granulocytes Auto 0.11 Thou/mm3 (0.00-0.00); Lymphocytes # (Auto) 1.1 Thou/mm3 (1.0-4.8); Lymphocytes % (Auto) 7 % (10-50); Mean Corpuscular HGB Conc 34.0 g/dl (31.0-37.0); Mean Corpuscular Hemoglobin 31.7 pg (25.0-35.0); Mean Corpuscular Volume 93 fL (80-100); Monocytes # (Auto) 0.9 Thou/mm3 (0.0-0.8); Monocytes % (Auto) 6 % (0-12); Neutrophils # (Auto) 14.0 Thou/mm3 (1.8-7.7); Neutrophils % (Auto) 87 % (37-80); Nucleated Red Blood Cell # 0.00 Thou/mm3 (0.00-0.00); Nucleated Red Blood Cell % 0 /100 WBC (0); Platelet Count 207 Thou/mm3 (140-440); RDW Standard Deviation 42.8 fL (36.4-46.3); Red Blood Count 3.09 Miln/mm3 (4.00-5.20); White Blood Count 16.2 Thou/mm3 (3.6-11.0)
[2025-09-03 08:00] VITALS: BP 101/67; PULSE 87; RESP 17; TEMP 36.6; O2SAT 98
--- NOTE | 2025-09-03 08:33 | ESPR_ITS ---
Subjective Subjective Interval history: 1. IUP 40 1/7 weeks in a now at 40.2 weeks 2. Maternal fever remote from delivery 3. tachycardia remote from delivery 4. Poor descent with 40 minutes of maternal pushing efforts 5. +GBS with multiple doses of ampicillin Post-Op diagnosis: Same Anesthesia type: Epidural (Bolused epidural) POD #1 . patient is on Ancef not voided yet after catheter removal and has not passed flatus yet Exam Vital Signs Temp Pulse Resp BP Pulse Ox O2 Del Method 97.5 F 74 20 99/66 97 Room Air 09/03/25 04:30 09/03/25 04:30 09/03/25 04:30 09/03/25 04:30 09/03/25 04:30 09/03/25 04:30 Narrative Exam alert x3 chest clear CVS RRR NO thyromegaly Uterus is nontender Uterus is firm/ appropriate size Just below the umbilicus Bowel sounds present Abdomen soft distension no hernias noted/no CVAT Incision CDI No drainage Appropriately tender No calf tenderness Edema mild catheter removed this mortning / not voided yet Objective Labs 09/03/25 05:26 Labs: Laboratory Results - last 24 hr 09/03/25 05:26 WBC 16.2 H RBC 3.09 L Hgb 9.8 L D Hct 28.8 L MCV 93 MCH 31.7 MCHC 34.0 RDW Std Deviation 42.8 Plt Count 207 D Neut % (Auto) 87 H Lymph % (Auto) 7 L [place] % (Auto) 6 Eos % (Auto) 0 Baso % (Auto) 0 Neut # (Auto) 14.0 H Lymph # (Auto) 1.1 [place] # (Auto) 0.9 H Eos # (Auto) 0.0 Baso # (Auto) 0.1 Immature Gran # (Auto) 0.11 H Absolute Nucleated RBC 0.00 Immature Gran % 1 H Nucleated RBC % 0 Assessment & Plan Problem List (1) Mother positive for group B Streptococcus colonization: Status: Acute (2) PKU (phenylketonuria): Status: Acute (3) AMA (advanced maternal age) primigravida 35+: Status: Acute (4) Chorioamnionitis, delivered, current hospitalization: Problem details: Ancef x 48 hours Status: Acute (5) delivery delivered: Problem details: Primary LTCS on 09/02/2025 for arrest of descent and chorioamnionitis Status: Acute Assessment Comment Assessment comment: Plan iv Reglan and oral MIlk of magnesia and dulcolax rectal suppository Time Spent With Patient Time: Total time spent is greater than 50% in coordination of care (as documented) at patient's floor/unit and/or counseling patient: Time with patient: 25 - 35 minutes
[2025-09-03] MEDS: HYDROcodone/APAP 5/325 TABLET 1 TAB PO (12:13)
[2025-09-03 12:40] VITALS: BP 109/69; PULSE 98; RESP 17; TEMP 36.8; O2SAT 97
[2025-09-03] MEDS: IBUPROFEN TAB 400 MG TABLET 800 MG PO ×2 (15:11→23:15)
[2025-09-03 16:50] VITALS: BP 96/59; PULSE 81; RESP 16; TEMP 36.8; O2SAT 98
[2025-09-03] MEDS: HYDROcodone/APAP 5/325 TABLET 2 TAB PO (17:34)
--- NOTE | 2025-09-03 17:50 | PC.NURSE ---
[address] Sheridan to discuss pt scheduled IV antibiotics, pts IV had infiltrated and was removed by Heidy RODRIGUEZ while pts main RN was on break. Pt refused new IV placement, Dr Sheridan give orders to cancel IV Ancef and ordered Augmentin 875 PO BID.
[2025-09-03 19:50] VITALS: BP 104/62; PULSE 91; RESP 16; TEMP 36.3; O2SAT 98
[2025-09-03] MEDS: AMOXICILLIN/POT CLAV 875 TABLET 1 TAB PO (21:04)
[2025-09-04] MEDS: HYDROcodone/APAP 5/325 TABLET 1 TAB PO (00:33)
[2025-09-04 04:45] VITALS: BP 103/70; PULSE 83; RESP 16; TEMP 36.7; O2SAT 98
[2025-09-04] MEDS: HYDROcodone/APAP 5/325 TABLET 2 TAB PO ×2 (06:22→12:31)
[2025-09-04 08:00] VITALS: BP 108/61; PULSE 93; RESP 18; TEMP 36.7; O2SAT 98
[2025-09-04 08:11] LABS: Basophils # (Auto) 0.1 Thou/mm3 (0.0-0.2); Basophils % (Auto) 1 % (0-2.5); Eosinophils # (Auto) 0.1 Thou/mm3 (0.0-0.5); Eosinophils % (Auto) 1 % (0-10); Hematocrit 29.3 % (36.0-46.0); Hemoglobin 9.7 g/dL (12.0-16.0); Immature Granulocytes Auto 0.11 Thou/mm3 (0.00-0.00); Lymphocytes # (Auto) 1.3 Thou/mm3 (1.0-4.8); Lymphocytes % (Auto) 11 % (10-50); Mean Corpuscular HGB Conc 33.1 g/dl (31.0-37.0); Mean Corpuscular Hemoglobin 31.1 pg (25.0-35.0); Mean Corpuscular Volume 94 fL (80-100); Monocytes # (Auto) 0.5 Thou/mm3 (0.0-0.8); Monocytes % (Auto) 4 % (0-12); Neutrophils # (Auto) 9.8 Thou/mm3 (1.8-7.7); Neutrophils % (Auto) 83 % (37-80); Nucleated Red Blood Cell # 0.00 Thou/mm3 (0.00-0.00); Nucleated Red Blood Cell % 0 /100 WBC (0); Platelet Count 211 Thou/mm3 (140-440); RDW Standard Deviation 44.0 fL (36.4-46.3); Red Blood Count 3.12 Miln/mm3 (4.00-5.20); White Blood Count 11.9 Thou/mm3 (3.6-11.0)
[2025-09-04] MEDS: PRENATAL VITAMIN/FE FUM/FA TABLET 1 TAB PO (08:20)
[2025-09-04] MEDS: DOCUSATE SOD 100 MG CAPSULE PO (08:20)
[2025-09-04] MEDS: IBUPROFEN TAB 400 MG TABLET 800 MG PO (10:57)
--- NOTE | 2025-09-04 12:32 | PD.LDPPPRG ---
Subjective Subjective Interval history: The patient is a 34-year-old -0-0-1 postop day 2 status post primary low-transverse section for a maternal fever and tachycardia. The patient progressed to complete and pushed about a half hour but was not pushing effectively.Since she had a fever and tachycardia remote from delivery, she was offered a C section. She is anxious to go home. She states her pain is controlled but she is in quite a bit of pain right before it is time to give her pain meds. She is not bleeding heavily. She is voiding, ambulating, tolerating a general diet, and passing flatus. She has not had a bowel movement but the patient had several bowel movements when she was pushing in labor. She is exclusively bottlefeeding. Her bleeding is minimal. She is reporting swelling in both her legs. Exam Vital Signs Temp Pulse Resp BP Pulse Ox O2 Del Method 98.1 F 93 18 108/61 98 Room Air 09/04/25 08:00 09/04/25 08:00 09/04/25 08:00 09/04/25 08:00 09/04/25 08:00 09/04/25 08:00 Narrative Exam Abdomen soft, slightly distended, fundus firm, incision clean dry and intact. No Dermabond in place. Extremities show 3+ edema all the way past her knees to her thighs. No erythema. Objective Labs 09/04/25 07:15 Labs: Laboratory Results - last 24 hr 09/04/25 07:15 WBC 11.9 H RBC 3.12 L Hgb 9.7 L Hct 29.3 L MCV 94 MCH 31.1 MCHC 33.1 RDW Std Deviation 44.0 Plt Count 211 Neut % (Auto) 83 H Lymph % (Auto) 11 [place] % (Auto) 4 Eos % (Auto) 1 Baso % (Auto) 1 Neut # (Auto) 9.8 H Lymph # (Auto) 1.3 [place] # (Auto) 0.5 Eos # (Auto) 0.1 Baso # (Auto) 0.1 Immature Gran # (Auto) 0.11 H Absolute Nucleated RBC 0.00 Immature Gran % 1 H Nucleated RBC % 0 Assessment & Plan Problem List (1) Mother positive for group B Streptococcus colonization: Status: Acute (2) PKU (phenylketonuria): Status: Acute (3) AMA (advanced maternal age) primigravida 35+: Status: Acute (4) Chorioamnionitis, delivered, current hospitalization: Problem details: Ancef x 48 hours Status: Acute (5) delivery delivered: Problem details: Primary LTCS on 09/02/2025 for arrest of descent and suspected early chorioamnionitis. Patient did well postoperatively. No fevers times greater than 36 hours. Discharged home postoperative day #2 in stable condition. Discharge instructions given. Status: Acute Time Spent With Patient Time: Total time spent is greater than 50% in coordination of care (as documented) at patient's floor/unit and/or counseling patient: Time with patient: less than 15 minutes
--- NOTE | 2025-09-04 12:41 | ESDS_ITS ---
DS: Providers Provider Date of admission: 09/01/25 21:21 Primary care physician: Physician No Primary/Family Admitting Provider: Mary Ellen Tenorio MD ([facility]) Attending Provider on Admission: Ramez Horn MD Consults: 09/02/25 18:42 Referral Routine Comment: Attending Provider on DC: Mary Ellen Tenorio MD ([facility]) Discharging Provider: Mary Ellen Tenorio MD ([facility]) Anticipated date of discharge: 09/04/25 DS: Diagnosis Discharge Diagnosis (1) delivery delivered: Status: Acute Assessment & Plan: Postop instructions given. Return to clinic in 2 weeks. (2) Chorioamnionitis, delivered, current hospitalization: Status: Acute Assessment & Plan: Antibiotics x 36 hours postop. Afebrile since delivery. (3) Mother positive for group B Streptococcus colonization: Status: Acute (4) PKU (phenylketonuria): Status: Acute Assessment & Plan: Patient to follow her diet. Problem List Completed Was Problem List Reviewed/Reconciled?: Yes Summary/Hosp Course Brief History: The patient is a 34-year-old G1, P0 at 40 and 1 sevenths weeks who presented around 2019 on 09/01/2025 very uncomfortable 1 to 2 cm dilated. Patient was sobia regularly. As she was past 40 weeks and AMA the decision was made to admit her in early labor. She was admitted and had an epidural shortly after admission. After epidural placement, she progressed to 3 cm dilated and was sobia every 3 minutes. Strep screen is negative. EFW was 8 to 8-1/2 pounds and there was some concern with a large abdominal circumference on the baby. The patient herself is positive for PKU and has been comanaged with maternal- medicine in [place] for the entire . She is positive for group B strep and ampicillin was started. She was 3 cm dilated overnight. At 0930, I ruptured her her bag and copious bloody clear fluid was noted. IUPC was placed. Patient's cervix was 6 to 7 cm 80% -2 position with no molding noted. Her cervix is very stretchy. She was reexamined at 1540 and progressed to 8 to 9 cm 90% with 0 station. She then progressed to complete 100 and 0. She did develop a fever of 101.5 degrees. Baby had some tachycardia. She was given Ancef and had been on ampicillin all day. Patient began pushing but was very numb from her epidural. She pushed for greater than 30 manage, largely ineffectively. Patient declined her epidural being turned down or off. The baby remained at 0 station with no descent after half an hour pushing. Patient was offered more pushing, turning epidural off, or a and opted for a . Please see op report for further details. Hospital course: Patient was on Ancef for 24 to 36 hours after delivery. She remained afebrile. Her vital signs were stable. Her predelivery hemoglobin was 12.5 postdelivery hemoglobin is 9.7 and stable. She did not have an increased white count by postop day #2 was 11.9. Patient's legs were quite swollen and she was given Lasix. She was discharged home postoperative day #2 in stable condition. Peripartum Data Delivery Method: Low Transverse Episiotomy Description: None Procedures: Procedures Operation Date: 09/02/25 17:15 Actual Procedure Side Surgeon p in OB Mary Ellen Tenorio ([facility])MD complications: none Status at Discharge Functional status at discharge: independent ambulation Overall status at discharge: patient is progressing back to baseline Time Spent with Patient Time attestation: Total time spent providing and/or coordinating discharge services: Time spent: Less than 30 minutes Specific discharge activities: Pelvic rest x 6 weeks. No heavy lifting intercourse tampons douching bathtubs or strenuous exercise x 6 weeks. Follow- up in clinic in 2 weeks for an incision check Exam Vital Signs Temp Pulse Resp BP Pulse Ox O2 Del Method 98.1 F 93 18 108/61 98 Room Air 09/04/25 08:00 09/04/25 08:00 09/04/25 08:00 09/04/25 08:00 09/04/25 08:00 09/04/25 08:00 Narrative Exam Fundus firm nontender. Abdomen slightly distended but soft. Incision clean dry and intact. Extremities show 3+ pitting edema all the way up to her thighs. No erythema. Discharge Plan Plan Patient Disposition: HOME (Self Care) Disposition Comment: Stable Patient condition on transfer: Stable Prescriptions/Referrals Prescriptions/Med Rec: New amoxicillin-pot clavulanate 875-125 mg Tablet 1 tab PO BIDWM Qty: 14 0RF hydrocodone-acetaminophen 5-325 mg Tablet 2 tab PO Q6HR MDD 4 PRN (Reason: Patient rated pain 9 to 10) Qty: 30 0RF sapropterin 100 mg Tablet,Soluble 100 mg PO QDAY Qty: 90 0RF furosemide [Lasix] 40 mg tablet 40 mg PO BID Qty: 10 0RF ketorolac 10 mg tablet 10 mg PO Q6H PRN (Reason: pain) 5 Days Qty: 20 0RF No Action Classic 28 mg iron- 800 mcg tablet 1 tab PO QDAY sapropterin 100 mg tablet,soluble 100 mg PO QDAY Patient Comments: states she takes 11 tablets. Phenyl-Free 2 PKU 22 gram-410 kcal/100 gram powder 1 ea PO QDAY Referrals: No Primary/Family,Physician [Primary Care Provider] Patient/Caregiver Discharge Instructions Discharge Activity: activity as tolerated Other Discharge Activity Instructions:: Schedule an appointment with your ob provider in one week Other Discharge Diet Instructions: PKU diet Education Materials: Breast Care After , After a , C Section Dc Print Language: Gabonese Activity Restrictions/Additional Instructions: Pelvic rest x 6 weeks. No intercourse tampons douching or bathtubs x 6 weeks. No heavy lifting x 6 weeks. No strenuous exercise x 6 weeks. Walk often. Stand Alone Forms: [facility] Award Info., Patient Portal Info Letter Discharge Order Discharge Orders: Discharge (Routine); Ordered 09/04/25 Ordered By: Mary Ellen Tenorio ([facility]) Planned Discharge Date 09/04/25
[2025-09-04] MEDS: AMOXICILLIN/POT CLAV 875 TABLET 1 TAB PO (13:17)
[2025-09-04 13:18] VITALS: BP 123/67; PULSE 92
== END 2025-09-04 13:40 | disposition home or self-care (01) | DRG 786 ==
LOC: S4SX 09-02 17:14 → S4NX 09-02 17:18
PROVIDERS: Admitting Provider Obstetrics & Gynecology; Visit Provider Obstetrics & Gynecology
PROC: 10D00Z1 Extraction of Products of Conception, Low, Open Approach (ICD-10-PCS; CPT 59514; principal; 2025-09-02 17:00)
DX: O48.0 Post-term pregnancy (principal); O41.1230 Chorioamnionitis, third trimester, not applicable or unspecified; E70.1 Other hyperphenylalaninemias; Z3A.40 40 weeks gestation of pregnancy; O99.824 Streptococcus B carrier state complicating childbirth; Z37.0 Single live birth; O76 Abnormality in fetal heart rate and rhythm complicating labor and delivery; O77.0 Labor and delivery complicated by meconium in amniotic fluid; O99.284 Endocrine, nutritional and metabolic diseases complicating childbirth; O62.1 Secondary uterine inertia
CPT/HCPCS: 36415; 59025; 59409; 85025; 86780; 86850; 86900; 86901; 94762; A4217; A4314; A4649; J0290; J0689; J0690; J1805; J1885; J2274; J2405; J2590; J2795; J3010; J3490; J7050; J7120; A9270; J2270